=== PATIENT | male | born 1950 | race Two or more races ===

== ENCOUNTER 2016-10-15 13:24 | Inpatient (IN) | payer MEDICARE ==
[~2016-10-15] VITALS: Ht 188 cm; Wt 130.1 kg
[~2016-10-15 13:24] MED LIST changes: -ELIQ5TAB PO; -GLUC500T PO; -LISI10TA4 PO; -LOPR1TAB6 PO
[2016-10-15] MEDS ORDERED: ASPIRIN 81 MG CHEW TABLET PO ONE (14:00)
[2016-10-15 14:04] LABS: BASO % 0.7 % (0.0-1.0); EOS # 0.2 K/mm3 (0.0-0.50); EOS % 2.6 % (0.0-3.0); LARGE UNSTAINED CELL # 0.1 K/mm3 (0.0-0.4); LARGE UNSTAINED CELL % 1.1 % (0.0-4.0); LYMPH # 1.4 K/mm3 (1.5-4.5); LYMPH % 19.7 % (24.0-44.0); MEAN CORPUSCULAR HEMOGLOBIN 28.8 pg (27.0-33.0); MEAN CORPUSCULAR HGB CONC 33.5 g/dl (32.0-36.5); MEAN CORPUSCULAR VOLUME 86.1 fl (80.0-96.0); MONO # 0.4 K/mm3 (0.0-0.8); MONO % 5.4 % (0.0-5.0); NEUTROPHILS # 4.8 K/mm3 (1.8-7.7); NEUTROPHILS % 70.6 % (36.0-66.0); PLATELET COUNT, AUTOMATED 175 k/mm3 (150-450); RED CELL DISTRIBUTION WIDTH 13.6 % (11.5-14.5); WHITE BLOOD COUNT 6.7 K/mm3 (4.0-10.0)
[2016-10-15 14:10] LABS: INR 1.1
[2016-10-15] MEDS: METOPROLOL 5 MG/5 ML VIAL IV SCH ×3 (14:34→14:48)
[2016-10-15 14:37] LABS: ALBUMIN 4.1 GM/DL (3.2-5.2); ALBUMIN/GLOBULIN RATIO 0.91 (1.00-1.93); ALKALINE PHOSPHATASE 82 U/L (45-117); ALT/SGPT 35 U/L (12-78); ANION GAP 10 MEQ/L (8-16); AST/SGOT 21 U/L (15-37); BILIRUBIN,DIRECT 0.3 MG/DL (0.0-0.2); BILIRUBIN,TOTAL 1.2 MG/DL (0.2-1.0); BLOOD UREA NITROGEN 17 MG/DL (7-18); CALCIUM LEVEL 8.9 MG/DL (8.8-10.2); CARBON DIOXIDE LEVEL 27 MEQ/L (21-32); CHLORIDE LEVEL 100 MEQ/L (98-107); CREATININE FOR GFR 1.26 MG/DL (0.70-1.30); FREE T4 1.21 NG/DL (0.76-1.46); GLOMERULAR FILTRATION RATE > 60.0 (>49); GLUCOSE, FASTING 245 MG/DL (80-110); POTASSIUM SERUM 3.8 MEQ/L (3.5-5.1); SODIUM LEVEL 137 MEQ/L (136-145); TOTAL PROTEIN 8.6 GM/DL (6.4-8.2)
[2016-10-15] MEDS ORDERED: METOPROLOL TART 25 MG TABLET PO ONE (15:00)
[2016-10-15] MEDS ORDERED: ISOVUE-370 76% 100ML VIAL (Q9967) As Ordered ONE (15:05)
--- NOTE | 2016-10-15 15:06 | REP ---
PORTABLE CHEST: AP portable view of the chest is performed and compared to prior study of 12/06/2009. The heart is upper limits of normal in size. There is no acute infiltrate with subtly prominent interstitial markings noted. The mediastinal silhouette is unchanged. IMPRESSION: No evidence of acute pulmonary disease. Signed by Keaton Patricio MD 10/15/2016 05:06 P
--- NOTE | 2016-10-15 15:19 | REP ---
BILATERAL LOWER EXTREMITY DOPPLER VENOUS ULTRASOUND: 10/15/2016. Clinical history: Bilateral lower extremity swelling, right greater than left. Findings: No prior study. Standard duplex techniques utilized from the groin to the popliteal fossa with color flow, duplex Doppler interrogation, romero scale imaging and compression ultrasound techniques. The left lower extremity shows full compressibility throughout its course with respiratory variation and augmented flow and patency of the color throughout. There is a duplication of the distal SFV which is a normal finding. The right lower extremity shows occlusive thrombus from the distal SFV through the popliteal vein into the tibial peroneal trunk. There is also a duplicated SFV distally on the right above this. There is normal flow and compressibility of the mid SFV and proximal SFV. The common femoral vein was also intact. Impression: 1. Occlusive DVT in the right lower extremity from the distal SFV in the thigh through the popliteal vein. The veins proximal to this in the thigh and groin were without thrombus. 2. No evidence of DVT in the left lower extremity. Signed by Raul Samuel MD 10/15/2016 03:57 P
--- NOTE | 2016-10-15 15:49 | HPEPDOC ---
Medical History and Physical Date of Admission 10/16/16 History and Physical ATTENDING: Dr. Gibbs PCP: None CC: RLE edema HPI: 66yoM with a past medical history significant for Afib, CHF who states he has not seen PCP or cardiology since 2010 when he stopped his meds. He states he felt fine in the meantime until a few days ago when he began to noitice RLE edema. States he took some outdated lasix to help. Pt [facility] and is found with Afib RVR and RLE DVT. Denies any fevers, chills, weakness, fatigue, KEITH, CP, SOB, cough, palpitations, abdominal pain, N/V/D or changes in bowel or bladder habits. Upon presentation to the hospital the patient was found to have Afib with RVR and DVT, thus the hospitalist team was consulted. PMHx: Afib on Coumadin in past. Pt stopped approximately 2010 (Pt states side effects with Coumadin) HTN CHF TTE 12/05 LA 5.0cm, DD, EF 50%. obesity BMI 37,7 PSHX: denies SOCHX: Resides in: [place] Marital Status: Kids: 3 Employment: [employer] Tobacco use: denies ETOH: 1-2 per week Illicit Drugs: Denies Recent travel:denies Advanced directives: none FAMHX: Mother: Cancer Father: CVA Siblings:1 sister Cancer, cirrhosis Children: Alive, well Unexpected deaths due to medical reasons: None. ROS: As noted in HPI, otherwise 11pt ROS of systems reviewed and unremarkable. PE: GEN: 66yoM, appears stated age. Well-nourished, well developed. No acute distress. Alert and oriented x 3. Pleasant, interactive. HEENT: Normocephalic, atraumatic. Pupils are equal, round, and reactive to light. Extraocular movements are intact. No nystagmus appreciated. Sclera are nonicteric. Conjunctiva without injection. Nose midline. Nasal turbinates without bogginess. EACs both patent BL. TMs both visualized and romero with good cone of light, no bulging or erythema. No facial asymmetry. Moist mucous membranes. Dentition fair. Pharynx pink and moist, no cobblestoning. Neck supple , trachea midline. No lymphadenopathy or thyromegaly appreciated. CHEST: irreg irreg rate and rhythm, +S1, +S2. tachy. JVD does not appear elevated. LUNGS: Clear to auscultation bilaterally. No wheezes, rales, or rhonchi. Breathing appears symmetric and easy. Patient is speaking in full sentences. No accessory muscle use. ABD: Round, soft, non-tender, non-distended. +Bowel sounds throughout. No rebound or guarding. No costovertebral angle tenderness. EXT: Pulses 2+ bilaterally dorsalis pedis and radial. RLE with edema and warmth. No TTP. SKIN: [place], dry, warm. Capillary refill <2sec. No rashes. NEURO: Alert and oriented x 3. Cranial nerves III-XII are intact. No focal deficits appreciated. CXR: No evidence of acute pulmonary disease. CTA Chest: pending RLE U/S 1. Occlusive DVT in the right lower extremity from the distal SFV in the thigh through the popliteal vein. The veins proximal to this in the thigh and groin were without thrombus. 2. No evidence of DVT in the left lower extremity. EKG: Afib RVR, IVCD 112 bpm. BC x 2 pending. UA pending A&P: 66yoM with a past medical history significant for Afib, CHF who states he has not seen PCP or cardiology since 2010 when he stopped his meds. He states he felt fine in the meantime until a few days ago when he began to noitice RLE edema. Pt reported to ED at [facility] and is found with Afib RVR and RLE DVT. 1. The patient will be admitted to PCU for at least [address] Gibbs's service. Pt is discussed with Dr Jordan. 2. Afib with RVR. Pt does not wish to be placed on Coumadin as he states he has had side effects in the past. PCU/TM. CIP/Trop x 3. TFTs. Lopressor po Q6 with hold parameters. Eliquis added as below. Echo pending. Dr Tavarez consulted. 3. RLE DVT. Initiate Eliquis 10 mg BID. CTA chest pending. 4. H/O HTN/CHF. Lopressor Q6 with hold parameters. Echo pending. Appears compensated. BNP 70. 5. Obesity. BMI 37.7 Complicates care. Add A1c and Lipids to labs. 6. Abnormal TSH. Thyroid profile requested. DVT prophylaxis. Eliquis as above. The patient is a Full code. Attending Note: I have independently examined this patient and all aspects of the exam and treatment decisions have been discussed. A member of the hospitalist staff will continue to follow this patient through discharge. Vital Signs Vital Signs Date Time Temp Pulse Resp B/P (MAP) Pulse Ox O2 Delivery O2 Flow Rate FiO2 10/15/16 14:48 101 148/97 10/15/16 13:24 96.8 16 97 Room Air Laboratory Data Labs 24H Laboratory Tests 2 10/15/16 13:49: White Blood Count 6.7, Red Blood Count 5.35, Hemoglobin 15.4, Hematocrit 46.0, Mean Corpuscular Volume 86.1, Mean Corpuscular Hemoglobin 28.8, Mean Corpuscular Hemoglobin Concent 33.5, Red Cell Distribution Width 13.6, Platelet Count 175, Neutrophils (%) (Auto) 70.6H, Lymphocytes (%) (Auto) 19.7L, Monocytes (%) (Auto) 5.4H, Eosinophils (%) (Auto) 2.6, Basophils (%) (Auto) 0.7 , Neutrophils # (Auto) 4.8, Lymphocytes # (Auto) 1.4L, Monocytes # (Auto) 0.4, Eosinophils # (Auto) 0.2, Basophils # (Auto) 0.0, Large Unclassified Cells % 1.1 , Large Unclassified Cells # 0.1, Prothrombin Time 14.3, Prothromb Time International Ratio 1.10, Activated Partial Thromboplast Time 31.5, Anion Gap 10 , Glomerular Filtration Rate > 60.0, Calcium Level 8.9, Aspartate Amino Transf ( AST/SGOT) 21, Alanine Aminotransferase (ALT/SGPT) 35, Alkaline Phosphatase 82, Total Bilirubin 1.2H, Direct Bilirubin 0.3H, Total Creatine Kinase 122, Creatine Kinase MB 2.4, Creatine Kinase MB Relative Index 1.96, Troponin I 0.04 , B-Type Natriuretic Peptide 70.5, Total Protein 8.6H, Albumin 4.1, Albumin/ Globulin Ratio 0.91L, Lipase 192, Thyroid Stimulating Hormone (TSH) 7.430H, Free Thyroxine 1.21 CBC/BMP Laboratory Tests 10/15/16 13:49 Red Blood Count 5.35, Mean Corpuscular Volume 86.1, Mean Corpuscular Hemoglobin 28.8, Mean Corpuscular Hemoglobin Concent 33.5, Red Cell Distribution Width 13.6 , Neutrophils (%) (Auto) 70.6 H, Lymphocytes (%) (Auto) 19.7 L, Monocytes (%) ( Auto) 5.4 H, Eosinophils (%) (Auto) 2.6, Basophils (%) (Auto) 0.7, Neutrophils # (Auto) 4.8, Lymphocytes # (Auto) 1.4 L, Monocytes # (Auto) 0.4, Eosinophils # (Auto) 0.2, Basophils # (Auto) 0.0 Microbiology Microbiology 10/15/16 Blood Culture, Received Pending 10/15/16 Blood Culture, Received Pending Home Medications No Active Prescriptions or Reported Meds Allergies Coded Allergies: No Known Allergies (Verified , 11/30/09) Paulina Pitt Oct 15, 2016 15:49 ZANDRA JORDAN DO Oct 15, 2016 18:54
--- NOTE | 2016-10-15 16:01 | REP ---
CT ANGIOGRAM OF THE CHEST: TECHNIQUE: Axial contrast enhanced images from the thoracic inlet to the upper abdomen using 100 mL Isovue 370 intravenous contrast material with multiplanar reformations. Thrombus is seen in second order branches of the right lower lobe. No other pulmonary embolism is seen bilaterally. There is no thoracic aortic aneurysm or dissection. Mildly prominent subcarinal lymph node measures 1.3 cm in short axis dimension. There are mild atherosclerotic calcifications of the thoracic aorta. Heart is mildly enlarged. There is no pleural or pericardial effusion. There are multiple tiny calcified granulomas in both lungs. In the visualized portions of the upper abdomen there are gallstones in the dependent portion of the gallbladder. There are degenerative changes of the spine. IMPRESSION: Pulmonary embolism in second order branches of the right lower lobe. Gallstones in the gallbladder. Signed by Keaton Patricio MD 10/15/2016 05:06 P
[2016-10-15 16:11] LABS: CHOLESTEROL LEVEL 178 MG/DL (<200); T UPTAKE 34 % (33-40); THYROXINE (T4) 10.7 UG/DL (4.5-12.0); TRIGLYCERIDES LEVEL 110 MG/DL (<150)
--- NOTE | 2016-10-15 17:59 | ECGEPIP ---
Stationary ECG Study [facility] - ED Test Date: 2016-10-15 Pat Name: KORY ARANGO Department: Room: [place] [address] Gender: M Membership Secretary: teo : 1950 Requested By: Ana Ledesma Order Number: [id number] Reading MD: Ana Ledesma Measurements Intervals [place] Rate: 112 P: GA: 0 QRS: -66 QRSD: 138 T: 109 QT: 366 QTc: 502 Interpretive Statements ATRIAL FIBRILLATION WITH RAPID VENTRICULAR RESPONSE WITH ABERRANT CONDUCTION OR VENTRICULAR PREMATURE COMPLEXES INTRAVENTRICULAR CONDUCTION DELAY LAD NO OLD ECG FOR COMPARISON Electronically Signed On 10-15-2016 17:59:18 EDT by Ana Ledesma
[2016-10-15] MEDS ORDERED: METOPROLOL TART 25 MG TABLET PO SCH (18:00)
[2016-10-15 20:30] VITALS: BP 160/93
[2016-10-15] MEDS ORDERED: SLF 3 ML SYR IV PRN (21:00)
[2016-10-15] MEDS: APIXABAN 5 MG TAB (ELIQUIS) PO SCH (21:57)
[2016-10-15] MEDS: SLF 3 ML SYR IV SCH (21:58)
[2016-10-16] VITALS (7 sets, daily range): BP systolic 142–164; BP diastolic 77–100
[2016-10-16] MEDS: METOPROLOL TART 25 MG TABLET PO SCH ×5 (00:13→17:50)
[2016-10-16 04:54] LABS: MEAN CORPUSCULAR HEMOGLOBIN 28.9 pg (27.0-33.0); MEAN CORPUSCULAR HGB CONC 32.8 g/dl (32.0-36.5); MEAN CORPUSCULAR VOLUME 88.2 fl (80.0-96.0); RED CELL DISTRIBUTION WIDTH 13.4 % (11.5-14.5); WHITE BLOOD COUNT 7.1 K/mm3 (4.0-10.0)
[2016-10-16 05:13] LABS: ALBUMIN 3.3 GM/DL (3.2-5.2); ALBUMIN/GLOBULIN RATIO 0.79 (1.00-1.93); ALKALINE PHOSPHATASE 71 U/L (45-117); ALT/SGPT 25 U/L (12-78); ANION GAP 7 MEQ/L (8-16); AST/SGOT 18 U/L (15-37); BILIRUBIN,TOTAL 1.3 MG/DL (0.2-1.0); BLOOD UREA NITROGEN 20 MG/DL (7-18); CALCIUM LEVEL 8.6 MG/DL (8.8-10.2); CARBON DIOXIDE LEVEL 30 MEQ/L (21-32); CHLORIDE LEVEL 103 MEQ/L (98-107); CREATININE FOR GFR 1.23 MG/DL (0.70-1.30); GLOMERULAR FILTRATION RATE > 60.0 (>49); GLUCOSE, FASTING 178 MG/DL (80-110); POTASSIUM SERUM 3.6 MEQ/L (3.5-5.1); SODIUM LEVEL 140 MEQ/L (136-145); TOTAL PROTEIN 7.5 GM/DL (6.4-8.2)
[2016-10-16] MEDS: SLF 3 ML SYR IV SCH ×3 (06:03→20:36)
[2016-10-16] MEDS: APIXABAN 5 MG TAB (ELIQUIS) PO SCH ×2 (08:12→20:36)
[2016-10-16 11:38] LABS: POTASSIUM SERUM 3.9 MEQ/L (3.5-5.1)
[2016-10-16 11:43] LABS: CREATININE FOR GFR 1.29 MG/DL (0.70-1.30); GLOMERULAR FILTRATION RATE 59.1 (>49); MAGNESIUM LEVEL 2.4 MG/DL (1.8-2.4)
[2016-10-16 11:57] LABS: CALCIUM LEVEL 8.8 MG/DL (8.8-10.2)
[2016-10-16] MEDS ORDERED: GLUCOSE 4 GM CHEW TABLET PO PRN (17:45)
[2016-10-16] MEDS ORDERED: GLUCAGON FOR INJ 1 MG VIAL (J1610) SC PRN (17:45)
[2016-10-16] MEDS ORDERED: DEXTROSE 50% 50 ML SYRINGE IV PRN (17:45)
--- NOTE | 2016-10-16 17:57 | IPNPDOC ---
Subjective Date Seen The patient was seen on 10/16/16. Subjective Chief Complaint/HPI The patient is a 66-year-old male admitted with a reason for visit of Atrial Fibrillation With Rvr, Right Leg Dvt. Constitutional: Denies: Chills, Fever, Night Sweats Pulmonary: Denies: Dyspnea, Cough Musculoskeletal: Reports: Leg Pain Objective Physical Examination General Exam: Positive: No Acute Distress Eye Exam: Positive: PERRLA Chest Exam: Positive: Clear to auscultation, Normal air movement Heart Exam: Positive: Tachycardic, Irregular Rhythm, Normal S1, Normal S2, Negative: Murmurs, Rubs Extremity Exam: Positive: Tenderness, Swelling Assessment /Plan Problems (1) Hyperglycemia Status: Acute Problem Text: * will check hgA1c * insulin sliding scale with accu checks (2) Right leg DVT Status: Acute Problem Text: started on eliquis (3) Atrial fibrillation with rapid ventricular response Status: Chronic Response to Treatment: Stable Plan/VTE VTE Prophylaxis Ordered?: Yes VS, I&O, 24H, [facility] Vital Signs/I&O Vital Signs Date Time Temp Pulse Resp B/P (MAP) Pulse Ox O2 Delivery O2 Flow Rate FiO2 10/16/16 16:00 98.1 86 20 142/89 (106) 95 Room Air I&O- Last 24 Hours up to 6 AM 10/16/16 06:00 Output Total 900 ml Balance -900 ml Laboratory Data 24H LABS Laboratory Tests 2 10/15/16 17:48: Total Creatine Kinase 101, Creatine Kinase MB 1.8, Creatine Kinase MB Relative Index 1.78, Troponin I 0.05# 10/15/16 20:59: Urine Appearance CLEAR, Urine Color YELLOW, Urine pH 5.0, Urine Specific [place] 1.032, Urine Protein NEGATIVE, Urine Glucose (UA) 3+H, Urine Ketones NEGATIVE, Urine Urobilinogen 2.0H, Urine Bilirubin NEGATIVE, Urine Leukocyte Esterase NEGATIVE, Urine Blood NEGATIVE, Urine Nitrite NEGATIVE, Urine WBC (Auto ) 0, Urine RBC (Auto) 0, Urine Hyaline Casts (Auto) 0, Urine Bacteria (Auto) NEGATIVE, Urine Squamous Epithelial Cells 0, Urine Sperm (Auto) 10/16/16 04:19: Total Creatine Kinase 78, Creatine Kinase MB 1.0, Creatine Kinase MB Relative Index 1.28, Troponin I 0.05, Anion Gap 7L, Glomerular Filtration Rate > 60.0, Blood Urea Nitrogen 20H, Creatinine 1.23, Sodium Level 140, Potassium Level 3.6 , Chloride Level 103, Carbon Dioxide Level 30, Calcium Level 8.6L, Aspartate Amino Transf (AST/SGOT) 18, Alanine Aminotransferase (ALT/SGPT) 25, Alkaline Phosphatase 71, Total Bilirubin 1.3H, Total Protein 7.5, Albumin 3.3, Albumin/ Globulin Ratio 0.79L 10/16/16 10:05: Total Creatine Kinase 76, Creatine Kinase MB 1.0, Creatine Kinase MB Relative Index 1.31, Troponin I 0.04, Anion Gap 8, Glomerular Filtration Rate 59.1, Calcium Level 8.8, Magnesium Level 2.4 CBC/BMP Laboratory Tests 10/16/16 04:19 Red Blood Count 4.98, Mean Corpuscular Volume 88.2, Mean Corpuscular Hemoglobin 28.9, Mean Corpuscular Hemoglobin Concent 32.8, Red Cell Distribution Width 13.4 , Calcium Level 8.6 L, Aspartate Amino Transf (AST/SGOT) 18, Alanine Aminotransferase (ALT/SGPT) 25, Total Creatine Kinase 78, Alkaline Phosphatase 71, Total Bilirubin 1.3 H, Total Protein 7.5, Albumin 3.3 10/16/16 10:05 Calcium Level 8.8, Total Creatine Kinase 76 Microbiology Microbiology 10/15/16 Blood Culture - Preliminary, Resulted No growth after 24 hours . All specim... 10/15/16 Blood Culture - Preliminary, Resulted No growth after 24 hours . All specim... DIOGO DEJESUS DO Oct 16, 2016 17:57
[2016-10-16] MEDS: HumaLOG INSULIN (NovoLOG) PER UNIT SC SCH ×2 (18:01→20:32)
[2016-10-17] MEDS: METOPROLOL TART 25 MG TABLET PO SCH ×2 (00:11→05:58)
[2016-10-17 04:00] VITALS: BP 140/90
[2016-10-17 05:10] LABS: MEAN CORPUSCULAR HGB CONC 33.2 g/dl (32.0-36.5); MEAN CORPUSCULAR VOLUME 87.2 fl (80.0-96.0); RED CELL DISTRIBUTION WIDTH 13.6 % (11.5-14.5); WHITE BLOOD COUNT 6.4 K/mm3 (4.0-10.0)
[2016-10-17 05:30] LABS: ALBUMIN 3.2 GM/DL (3.2-5.2); ALBUMIN/GLOBULIN RATIO 0.76 (1.00-1.93); ALKALINE PHOSPHATASE 62 U/L (45-117); ALT/SGPT 24 U/L (12-78); ANION GAP 5 MEQ/L (8-16); AST/SGOT 18 U/L (15-37); BILIRUBIN,TOTAL 1.2 MG/DL (0.2-1.0); BLOOD UREA NITROGEN 22 MG/DL (7-18); CALCIUM LEVEL 8.6 MG/DL (8.8-10.2); CARBON DIOXIDE LEVEL 31 MEQ/L (21-32); CHLORIDE LEVEL 104 MEQ/L (98-107); CHOLESTEROL LEVEL 158 MG/DL (<200); CREATININE FOR GFR 1.22 MG/DL (0.70-1.30); GLOMERULAR FILTRATION RATE > 60.0 (>49); GLUCOSE, FASTING 164 MG/DL (80-110); POTASSIUM SERUM 3.8 MEQ/L (3.5-5.1); SODIUM LEVEL 140 MEQ/L (136-145); TOTAL PROTEIN 7.4 GM/DL (6.4-8.2); TRIGLYCERIDES LEVEL 86 MG/DL (<150)
[2016-10-17] MEDS: SLF 3 ML SYR IV SCH ×3 (05:59→20:27)
[2016-10-17 08:00] VITALS: BP 163/93
--- NOTE | 2016-10-17 08:50 | CR ---
DATE OF CONSULTATION: 10/17/2016 Referring physician was Paulina Pitt PA-C. INDICATION: Atrial fibrillation with rapid ventricular response. HISTORY OF PRESENT ILLNESS: Mr. Baxter is a 66-year-old man who has not had any consistent medical care since 2009. He presented to [facility] with right lower extremity swelling and mild discomfort and shortness of breath. The onset of symptoms was only a few days prior to the presentation. He was found to have deep venous thrombosis (DVT) in right lower extremity and there was evidence for right lower lobe pulmonary embolism on CT angiography of the chest. Simultaneously, he was in atrial fibrillation with rapid ventricular response that was fairly rapidly under control with administration of initially IV and then oral metoprolol. I was asked to see the patient mostly to establish a relationship so he can be followed on outpatient basis. Patient apparently was diagnosed with atrial fibrillation in 2009 or 2010. He was briefly followed by Dr. Hong and started on several medications. Apparently, there was some kind of conflict and he stopped seeing all medical providers. In spite of that he was doing well, was able to ambulate and to work without major difficulty. He denies any shortness of breath prior to onset of current illness. There was no history of dizziness, near/syncope and no chest pain. PAST MEDICAL HISTORY: 1. Chronic atrial fibrillation dating back to 2009 or 2010. 2. Hypertension. 3. Remote history of congestive heart failure. An echocardiogram 2009 revealed grossly preserved left ventricular systolic function with ejection fraction (EF) around 50%. 4. Obesity. SURGICAL HISTORY: Is negative. SOCIAL HISTORY: Patient is . He is a father of three children. 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 No smoking and he has rare beer once a twice a week. FAMILY HISTORY: His father of stroke, mother of cancer and one of the siblings of liver cirrhosis. OUTPATIENT MEDICATIONS: None. ALLERGIES: None. REVIEW OF SYSTEMS: He denies any recent fever, chills, nausea, vomiting, diarrhea. No chest pain or palpitations. Shortness of breath and leg swelling and pain as per HPI. No abdominal pain. PHYSICAL EXAMINATION: Mr. Baxter is a 66-year-old and appears approximately his age. He is alert and oriented and appropriate. Does not appear to be in any distress. Blood pressure this morning was documented 163/93. Heart rate has been well controlled in 60s to 70s, atrial fibrillation. He is afebrile. Saturation 98% on room air. His jugular venous pulse (JVP) is not elevated. Lungs sound clear to auscultation bilaterally with good air movement. Heart exam revealed regular rhythm. No gallop. No rub. I do not appreciate any distinct murmur as well, but the heart sounds are somewhat muffled due to his large body habitus. Abdomen is obese but soft and nontender. Extremities have about 1+ swelling in his right calf, definitely larger volume than left calf, but no pain as such. LABORATORY [facility]: CBC is normal. Basic metabolic panel is normal. Calcium is 8.6. Magnesium is 1.2. His lipid panel reveals total cholesterol 158, HDL 37, LDL 104. Echocardiogram was performed yesterday and is pending. CT of the chest with IV contrast is positive for right lobe embolus. ASSESSMENT AND PLAN: Mr. Baxter is a 66-year-old man who has chronic atrial fibrillation and presented with rapid ventricular rate in the setting of deep venous deep venous thrombosis/pulmonary embolism. As far as the management of pulmonary embolism is concerned, he was started on apixaban and he already feels much better. This will be continued. As far as the atrial fibrillation is concerned, he seems to be now well controlled on 100 mg of metoprolol a day. I changed his dosing to 50 twice a day. I will review his echocardiogram. I do not assume that there will be LV systolic dysfunction as I do not believe that he could have lived with severe LV dysfunction for years without much symptoms. He is hypertensive, but I will not add additional medications. He was without treatment for years and I will prefer to add additional medication on outpatient basis if necessary. From my perspective, he can be discharged home possibly even later today. He did have several brief runs of nonsustained ventricular tachycardia on telemetry, not more than 5 beats at a time, but now with pulmonary embolism being treated I do hope that there will be improvement. SARBJIT
[2016-10-17] MEDS: METOPROLOL TART 50 MG TAB PO SCH ×2 (09:02→20:27)
[2016-10-17] MEDS: APIXABAN 5 MG TAB (ELIQUIS) PO SCH ×2 (09:02→20:27)
[2016-10-17] MEDS: HumaLOG INSULIN (NovoLOG) PER UNIT SC SCH ×4 (09:02→20:28)
[2016-10-17] MEDS: metFORMIN (GLUCOPHAGE) 500 MG TAB PO SCH ×2 (10:49→17:36)
[2016-10-17 12:00] VITALS: BP 140/66
[2016-10-17] MEDS ORDERED: ELIQ5TAB PO (12:48)
--- NOTE | 2016-10-17 14:37 | IPNPDOC ---
Subjective Date Seen The patient was seen on 10/17/16. Subjective Chief Complaint/HPI The patient is a 66-year-old male admitted with a reason for visit of Atrial Fibrillation With Rvr, Right Leg Dvt. Events since last encounter pt seen and examined, doing well, no events overnight on tele Objective Physical Examination General Exam: Positive: No Acute Distress Eye Exam: Positive: PERRLA Chest Exam: Positive: Clear to auscultation, Normal air movement Heart Exam: Positive: Tachycardic, Irregular Rhythm, Normal S1, Normal S2, Negative: Murmurs, Rubs Extremity Exam: Positive: Tenderness, Swelling Assessment /Plan Problems (1) Right leg DVT Status: Acute Problem Text: started on eliquis (2) Atrial fibrillation with rapid ventricular response Status: Chronic Response to Treatment: Stable Problem Text: * metoprolol bid * eliquis daily (3) Hyperglycemia Status: Acute Problem Text: * HgA1C is 8.2 * will start diabetic teaching, consistent carb diet * metformin 500mg Plan/VTE VTE Prophylaxis Ordered?: Yes VS, I&O, 24H, [facility] Vital Signs/I&O Vital Signs Date Time Temp Pulse Resp B/P (MAP) Pulse Ox O2 Delivery O2 Flow Rate FiO2 10/17/16 12:00 97.7 70 20 140/66 (90) 100 Room Air I&O- Last 24 Hours up to 6 AM 10/17/16 06:00 Intake Total 1440 ml Output Total 950 ml Balance 490 ml Laboratory Data 24H LABS Laboratory Tests 2 10/16/16 17:55: Bedside Glucose (Misc Panel) 219H 10/16/16 20:31: Bedside Glucose (Misc Panel) 206H 10/17/16 04:45: Anion Gap 5L, Glomerular Filtration Rate > 60.0, Blood Urea Nitrogen 22H, Creatinine 1.22, Sodium Level 140, Potassium Level 3.8, Chloride Level 104, Carbon Dioxide Level 31, Calcium Level 8.6L, Aspartate Amino Transf (AST/SGOT) 18, Alanine Aminotransferase (ALT/SGPT) 24, Alkaline Phosphatase 62, Total Bilirubin 1.2H, Triglycerides Level 86, LDL Cholesterol 103.8H, Total Protein 7.4, Albumin 3.2, Albumin/Globulin Ratio 0.76L, Total Cholesterol 158, Non-HDL Cholesterol (LDL + VLDL) 121, Total HDL Cholesterol 37L, Cholesterol/HDL Ratio 4.270 10/17/16 11:05: Bedside Glucose (Misc Panel) 197H CBC/BMP Laboratory Tests 10/17/16 04:45 Red Blood Count 4.91, Mean Corpuscular Volume 87.2, Mean Corpuscular Hemoglobin 29.0, Mean Corpuscular Hemoglobin Concent 33.2, Red Cell Distribution Width 13.6 , Calcium Level 8.6 L, Aspartate Amino Transf (AST/SGOT) 18, Alanine Aminotransferase (ALT/SGPT) 24, Alkaline Phosphatase 62, Total Bilirubin 1.2 H, Triglycerides Level 86, LDL Cholesterol 103.8 H, Total Protein 7.4, Albumin 3.2 Microbiology Microbiology 10/15/16 Blood Culture - Preliminary, Resulted No Growth after 48 hours. All Specime... 10/15/16 Blood Culture - Preliminary, Resulted No Growth after 48 hours. All Specime... 10/17/16 Stool Occult Blood (SULY) - Final, Complete DIOGO DEJESUS DO Oct 17, 2016 14:37
[2016-10-17 15:30] VITALS: BP 126/52
[2016-10-17 19:49] VITALS: BP 152/86
--- NOTE | 2016-10-17 20:22 | ECHO ---
DATE OF PROCEDURE: 10/16/2016 REFERRING PHYSICIAN: Trini Gibbs MD, Paulina Pitt NP INDICATION: Congestive heart failure, atrial fibrillation, pulmonary embolism. HEIGHT: 188 cm WEIGHT: 133 kg DIMENSIONS: IVS: 1.5 LV: 5.0 LVPW: 1.5 LA: 4.4 Aorta: 3.1 FINDINGS: The study is of fair technical quality. The left ventricle is of normal size. There is a global hypokinesis. I estimate overall ejection fraction (EF) around 45%. Moderate left ventricular hypertrophy is noted. Right ventricle appears at least mildly dilated. Both atria are severely enlarged. Aortic valve is sclerotic, but is has three cusps and dual mobility. Mitral valve appears normal. Tricuspid valve appears normal. Pulmonic valve also appears normal. No pericardial effusion is noted. Inferior vena cava is dilated and has limited collapse with respiration indicative of high central venous pressure. Aortic root appears normal. Aortic arch and abdominal aorta were not well seen. Doppler interrogation reveals no aortic stenosis or insufficiency. There is mild mitral insufficiency and mild tricuspid insufficiency. Calculated pulmonary artery pressure is at least in mid 50s or higher corresponding to moderately severe pulmonary hypertension. Pulmonic valve is functionally competent. CONCLUSIONS: 1. Study is of limited technical quality. 2. Normal left ventricle (LV) size with moderate left ventricular hypertrophy (LVH) and approximately moderate LV systolic dysfunction that is global in nature. 3. Dilated right ventricle. 4. Severe biatrial enlargement. 5. No hemodynamically significant valvular disease. 6. Elevated central venous pressure and at least moderately severe pulmonary hypertension. COMMENT: Subacute bacterial endocarditis (SBE) prophylaxis is not recommended.
[2016-10-17 23:59] VITALS: BP 156/93
[2016-10-18 04:00] VITALS: BP 180/99
[2016-10-18 04:55] LABS: MEAN CORPUSCULAR HEMOGLOBIN 28.6 pg (27.0-33.0); MEAN CORPUSCULAR HGB CONC 33.2 g/dl (32.0-36.5); MEAN CORPUSCULAR VOLUME 86.1 fl (80.0-96.0); RED CELL DISTRIBUTION WIDTH 13.5 % (11.5-14.5); WHITE BLOOD COUNT 6.2 K/mm3 (4.0-10.0)
[2016-10-18 05:11] LABS: ALBUMIN 3.3 GM/DL (3.2-5.2); ALKALINE PHOSPHATASE 63 U/L (45-117); ALT/SGPT 23 U/L (12-78); ANION GAP 6 MEQ/L (8-16); AST/SGOT 17 U/L (15-37); BILIRUBIN,TOTAL 1.1 MG/DL (0.2-1.0); BLOOD UREA NITROGEN 22 MG/DL (7-18); CALCIUM LEVEL 8.9 MG/DL (8.8-10.2); CARBON DIOXIDE LEVEL 29 MEQ/L (21-32); CHLORIDE LEVEL 104 MEQ/L (98-107); CREATININE FOR GFR 1.23 MG/DL (0.70-1.30); GLOMERULAR FILTRATION RATE > 60.0 (>49); GLUCOSE, FASTING 128 MG/DL (80-110); POTASSIUM SERUM 4.2 MEQ/L (3.5-5.1); SODIUM LEVEL 139 MEQ/L (136-145); TOTAL PROTEIN 7.4 GM/DL (6.4-8.2)
[2016-10-18] MEDS: SLF 3 ML SYR IV SCH (05:46)
[2016-10-18 07:25] VITALS: BP 140/80
[2016-10-18] MEDS: HumaLOG INSULIN (NovoLOG) PER UNIT SC SCH (07:48)
[2016-10-18] MEDS: metFORMIN (GLUCOPHAGE) 500 MG TAB PO SCH (07:49)
[2016-10-18 08:45] VITALS: BP 148/80
[2016-10-18] MEDS: APIXABAN 5 MG TAB (ELIQUIS) PO SCH (08:45)
[2016-10-18] MEDS: METOPROLOL TART 50 MG TAB PO SCH (08:45)
[2016-10-18] MEDS ORDERED: ELIQ5TAB PO (09:03)
[2016-10-18] MEDS ORDERED: GLUC500T PO (09:03)
[2016-10-18] MEDS ORDERED: LISI10TA4 PO (09:03)
[2016-10-18] MEDS ORDERED: LOPR1TAB6 PO (09:03)
[2016-10-18 10:09] LABS: MAGNESIUM LEVEL 2.3 MG/DL (1.8-2.4)
--- NOTE | 2016-10-18 17:57 | DSES ---
DATE OF ADMISSION: 10/15/2016 DATE OF DISCHARGE: 10/18/2016 REASON FOR ADMISSION: Right lower extremity edema. FINAL DIAGNOSES 1. Right lower extremity deep venous thrombosis (DVT). 2. Pulmonary emboli. 3. Atrial fibrillation with rapid ventricular response (RVR). 4. New diagnosis of diabetes. 5. Hypertension. PRIMARY CARE PROVIDER: None. HISTORY OF PRESENT ILLNESS: The patient is a 66-year-old male with past medical history of atrial fibrillation but he did not followup with any providers. He presented to the emergency room complaining of lower extremity edema and pain. He stated it started a few days ago. He did take some outdated Lasix hoping it would help but it did not. He finally presented to the emergency room. He was found to have right lower extremity DVT, pulmonary embolism (PE) and atrial fibrillation with rapid ventricular response. The patient was admitted under hospitalist service and cardiology was consulted. HOSPITAL COURSE: The patient was started on Eliquis 10 mg by mouth twice a day for seven days. Dr. Tavarez was consulted and he agreed to see the patient in consultation. He started the patient on metoprolol twice a day which controlled his heart rate. Hemoglobin A1c was ordered. It was found to be 8.2. The patient was given diabetic teaching and started on metformin 500 mg by mouth twice a day. The patient's blood pressure continued to be elevated. He was then started on lisinopril 10 mg by mouth daily. Once the patient's medications were sent to the pharmacy and his lab values were stable and he has undergone the teaching, he was discharged home. The patient does not have insurance at this time, so he is instructed to go Dr. Tavarez's office for samples for Eliquis in the meantime until he gets insurance. Diet diabetic. Activities as tolerated. Discharge medications include: - Eliquis 5 mg by mouth twice a day; the patient is first instructed to complete three more days of 10 mg by mouth twice a day, then he can start a dose of 5 mg by mouth twice a day - metoprolol 50 mg by mouth twice a day - metformin 500 mg by mouth twice a day - lisinopril 10 mg by mouth daily The patient was given a primary care provider. He is to followup with Dr. Kaur in 1-2 weeks. DISCHARGE CONDITION: Stable.
--- NOTE | 2016-10-18 19:16 | IPN ---
DATE: 10/18/2016 Mr. Baxter is feeling better, and he would like to go home. He had no specific complaints. No dyspnea. No palpitations. No chest discomfort. Vital signs: Blood pressure 140/80, heart rate is from 60s to 90s. He is afebrile. Saturation 94% on room air. Fluid balance yesterday approximately equal. Weight is 130 kg. He is alert, oriented, and appropriate. His jugular venous pulse (JVP) does not appear elevated. Lungs are clear to auscultation with good air movement. Heart exam reveals irregular rhythm. I do not appreciate any gallop. Abdomen is obese but soft. There is no peripheral edema. His right lower extremity edema is basically gone. Neurologically he is intact. LABORATORY: He has normal CBC and normal basic metabolic panel. He had echocardiogram that revealed mild to moderate left ventricular (LV) systolic dysfunction with left ventricular hypertrophy and no significant valvular disease. There was elevated central venous pressure (CVP) and at least moderate pulmonary hypertension. The echocardiogram was performed 2 days ago. ASSESSMENT AND PLAN: Mr. Baxter is a 66-year-old man who has chronic atrial fibrillation and likely hypertensive heart disease. He presented with deep vein thrombosis (DVT) and pulmonary embolism. At this point I believe he can be discharged home. He will complete 10 mg of apixaban twice a day to be followed by 5 mg twice a day. I will continue metoprolol, as it appears that his atrial fibrillation is well controlled. Even though the combination of angiotensin-converting enzyme (TROY) inhibitor and beta-ethan is generally not recommended for treatment of blood pressure, I would add an TROY inhibitor due to left ventricular dysfunction and diabetes. I intend to see the patient in followup in approximately 2 weeks.
== END 2016-10-18 11:36 | disposition home health service (06) | DRG 299 ==
LOC: M ED 15:13 → M ED INP 15:35 → M PCU 20:23
PROVIDERS: ADMIT Hospitalist; ATTEND Internal Medicine
DX: I82.411 Acute embolism and thrombosis of right femoral vein (principal); I26.99 Other pulmonary embolism without acute cor pulmonale; I48.91 Unspecified atrial fibrillation; I11.0 Hypertensive heart disease with heart failure; Z79.899 Other long term (current) drug therapy; I50.9 Heart failure, unspecified; E66.9 Obesity, unspecified; Z68.37 Body mass index [BMI] 37.0-37.9, adult; I82.431 Acute embolism and thrombosis of right popliteal vein; R73.9 Hyperglycemia, unspecified

== ENCOUNTER → 2016-10-15 | Outpatient (CLI) | payer MEDICARE ==
[~2016-10-15] MED LIST: /WARF5TA OR; CARV12.5 OR; CARV25TA OR; DIGO0.257 OR; ELIQ5TAB PO; GLUC500T PO; LASI80TA OR; LISI10TA4 PO; LISI20TA5 OR; LOPR1TAB6 PO; PRAV20TA2 OR; SPIR25TA2 OR
== END ==
LOC: M LRY 12:50
PROVIDERS: ATTEND Nurse Practitioner Family
DX: I50.9 Heart failure, unspecified (principal); Z53.8 Procedure and treatment not carried out for other reasons

== ENCOUNTER → 2017-01-09 | Outpatient (REF) | payer MEDICARE, MEDICAID ==
[~2017-01-09] MED LIST changes: +ELIQ5TAB PO; +GLUC500T PO; +LISI10TA4 PO; +LOPR1TAB6 PO
[2017-01-09 12:03] LABS: ANION GAP 6 MEQ/L (8-16); BLOOD UREA NITROGEN 25 MG/DL (7-18); CALCIUM LEVEL 9.4 MG/DL (8.8-10.2); CARBON DIOXIDE LEVEL 30 MEQ/L (21-32); CHLORIDE LEVEL 106 MEQ/L (98-107); CREATININE FOR GFR 1.15 MG/DL (0.70-1.30); GLOMERULAR FILTRATION RATE > 60.0 (>49); GLUCOSE, FASTING 160 MG/DL (80-110); POTASSIUM SERUM 4.5 MEQ/L (3.5-5.1); SODIUM LEVEL 142 MEQ/L (136-145)
== END ==
LOC: M SFHCCLAY 08:21
PROVIDERS: ATTEND Family Medicine
DX: I10 Essential (primary) hypertension (principal)

== ENCOUNTER → 2017-03-18 | Outpatient (REF) | payer MEDICARE, MEDICAID ==
[2017-03-19 12:46] LABS: CALCIUM LEVEL 9.5 MG/DL (8.8-10.2); CREATININE FOR GFR 1.6 MG/DL (0.70-1.30)
== END ==
LOC: M SFHCCLAY 16:13
PROVIDERS: ATTEND Family Medicine
DX: I48.2 Chronic atrial fibrillation (principal); I10 Essential (primary) hypertension; Z23 Encounter for immunization; Z79.899 Other long term (current) drug therapy
CPT/HCPCS: 80048; 83036; 90662; G0008; G0463

== ENCOUNTER → 2017-04-11 | Outpatient (REF) | payer MEDICARE, MEDICAID ==
[2017-04-11 11:59] LABS: CALCIUM LEVEL 8.7 MG/DL (8.8-10.2); CREATININE FOR GFR 1.27 MG/DL (0.70-1.30); POTASSIUM SERUM 4.2 MEQ/L (3.5-5.1)
== END ==
LOC: M SFHCCLAY 08:02
PROVIDERS: ATTEND Family Medicine
DX: I10 Essential (primary) hypertension (principal)

== ENCOUNTER → 2017-07-08 | Outpatient (REF) | payer MEDICARE, MEDICAID ==
[2017-07-08 12:27] LABS: ANION GAP 10 MEQ/L (8-16); BLOOD UREA NITROGEN 30 MG/DL (7-18); CALCIUM LEVEL 9.3 MG/DL (8.8-10.2); CARBON DIOXIDE LEVEL 25 MEQ/L (21-32); CHLORIDE LEVEL 104 MEQ/L (98-107); CHOLESTEROL LEVEL 197 MG/DL (<200); CREATININE FOR GFR 1.22 MG/DL (0.70-1.30); GLOMERULAR FILTRATION RATE > 60.0 (>49); GLUCOSE, FASTING 140 MG/DL (70-100); HDL CHOLESTEROL 42 MG/DL (>40); LDL CHOLESTEROL 131.2 MG/DL (<100); NON-HDL-C 155 MG/DL; POTASSIUM SERUM 4.3 MEQ/L (3.5-5.1); SODIUM LEVEL 139 MEQ/L (136-145); TRIGLYCERIDES LEVEL 119 MG/DL (<150)
[2017-07-08 14:06] LABS: ESTIMATED AVERAGE GLUCOSE 160 MG/DL (60-110); HEMOGLOBIN A1c 7.2 %
== END ==
LOC: M SFHCCLAY 07:47
DX: I48.91 Unspecified atrial fibrillation (principal); I10 Essential (primary) hypertension; E11.40 Type 2 diabetes mellitus with diabetic neuropathy, unspecified
CPT/HCPCS: 83036

== ENCOUNTER → 2017-07-10 | Outpatient (REF) | payer MEDICARE, MEDICAID ==
[2017-07-10 12:58] LABS: MALB URINE SIEMENS 9.4 MG/L; MAU/CREAT RATIO 5.2 MCG/MG (0.0-30.0)
== END ==
LOC: M SFHCCLAY 12:16
DX: I10 Essential (primary) hypertension (principal); E11.40 Type 2 diabetes mellitus with diabetic neuropathy, unspecified; I48.91 Unspecified atrial fibrillation
CPT/HCPCS: 82043

== ENCOUNTER → 2018-02-02 | Outpatient (REF) | payer MEDICARE, MEDICAID ==
[2018-02-02 12:48] LABS: ANION GAP 6 MEQ/L (8-16); BLOOD UREA NITROGEN 23 MG/DL (7-18); CALCIUM LEVEL 8.7 MG/DL (8.8-10.2); CARBON DIOXIDE LEVEL 28 MEQ/L (21-32); CHLORIDE LEVEL 107 MEQ/L (98-107); CREATININE FOR GFR 1.32 MG/DL (0.70-1.30); GLOMERULAR FILTRATION RATE 57.4 (>49); GLUCOSE, FASTING 152 MG/DL (70-100); POTASSIUM SERUM 4.4 MEQ/L (3.5-5.1); SODIUM LEVEL 141 MEQ/L (136-145)
[2018-02-02 13:06] LABS: ESTIMATED AVERAGE GLUCOSE 143 MG/DL (60-110); HEMOGLOBIN A1c 6.6 %
[2018-02-03 14:55] LABS: MALB URINE SIEMENS 10.3 MG/L
[2018-02-03 15:14] LABS: MAU/CREAT RATIO 6.8 MCG/MG (0.0-30.0)
== END ==
LOC: M SFHCCLAY 07:25
DX: I10 Essential (primary) hypertension (principal); E11.40 Type 2 diabetes mellitus with diabetic neuropathy, unspecified
CPT/HCPCS: 83036

== ENCOUNTER → 2018-02-25 | Outpatient (REF) | payer MEDICARE, MEDICAID ==
[2018-02-25 12:03] LABS: ANION GAP 11 MEQ/L (8-16); BLOOD UREA NITROGEN 24 MG/DL (7-18); CALCIUM LEVEL 8.8 MG/DL (8.8-10.2); CARBON DIOXIDE LEVEL 23 MEQ/L (21-32); CHLORIDE LEVEL 104 MEQ/L (98-107); CREATININE FOR GFR 1.31 MG/DL (0.70-1.30); GLOMERULAR FILTRATION RATE 57.8 (>49); GLUCOSE, FASTING 183 MG/DL (70-100); POTASSIUM SERUM 4.3 MEQ/L (3.5-5.1); SODIUM LEVEL 138 MEQ/L (136-145)
== END ==
LOC: M SFHCCLAY 08:01
DX: I51.7 Cardiomegaly (principal); E11.40 Type 2 diabetes mellitus with diabetic neuropathy, unspecified
CPT/HCPCS: 80048

== ENCOUNTER → 2018-09-23 | Outpatient (CLI) | payer MEDICARE, MEDICAID ==
[~2018-09-23] MED LIST changes: -/WARF5TA OR; +COUM1TAB17 OR
--- NOTE | 2018-09-23 16:00 | REP ---
Clinical: Shortness of breath Comparison: 10/15/2016 . Technique: PA and lateral. Findings: The mediastinum and cardiac silhouette are normal. The lung troy are clear and without acute consolidation, effusion, or pneumothorax. The skeletal structures are intact and normal. Impression: 1. No acute cardiopulmonary process.
== END ==
LOC: M CLY 15:31
PROVIDERS: ATTEND Nurse Practitioner Family
DX: R06.02 Shortness of breath (principal)
CPT/HCPCS: 71046; G0463

== ENCOUNTER → 2018-09-29 | Outpatient (REF) | payer MEDICARE, MEDICAID ==
[2018-09-29 13:26] LABS: ALBUMIN 3.8 GM/DL (3.2-5.2); CHOLESTEROL RISK RATIO 4.333 (<5); CREATININE FOR GFR 1.38 MG/DL (0.70-1.30); GLOMERULAR FILTRATION RATE 54.4 (>49); PHOSPHORUS LEVEL 3.2 MG/DL (2.5-4.9); POTASSIUM SERUM 4.3 MEQ/L (3.5-5.1)
[2018-09-29 14:35] LABS: HEMOGLOBIN A1c 7.2 %
== END ==
LOC: M SFHCCLAY 07:39
PROVIDERS: ATTEND Nurse Practitioner Family
DX: E11.40 Type 2 diabetes mellitus with diabetic neuropathy, unspecified (principal); I48.0 Paroxysmal atrial fibrillation; I27.0 Primary pulmonary hypertension

== ENCOUNTER → 2018-10-05 | Outpatient (REF) | payer MEDICARE, MEDICAID | LOC: M SFHCCLAY 11:29 | PROVIDERS: ATTEND Nurse Practitioner Family | DX: R19.7 Diarrhea, unspecified (principal) ==

== ENCOUNTER 2018-12-24 13:57 | Emergency (ER) | payer MEDICAID, MEDICARE ==
[~2018-12-24] VITALS: Ht 188 cm; Wt 134.4 kg
[2018-12-24] MEDS ORDERED: AMLO10TA5 (14:17)
[2018-12-24] MEDS ORDERED: METF500T13 (14:17)
[2018-12-24] MEDS ORDERED: FURO20TA2 (14:17)
[2018-12-24] MEDS ORDERED: LISI40TA (14:17)
[2018-12-24] MEDS ORDERED: METO1TAB33 (14:17)
[2018-12-24] MEDS ORDERED: METF10004 PO (14:17)
--- NOTE | 2018-12-24 15:44 | REP ---
Portable chest, 03:16 p.m., to AP views with the patient sitting: Comparison is the PA and lateral chest dated 09/23/2018. The lung troy are clear. The cardiac size is upper normal. The eliceo, mediastinum, and skeletal structures are unremarkable. Impression: Negative portable chest. There is no interval change. Electronically Signed by Keaton Flynn MD 12/24/2018 03:35 P
[2018-12-24 16:05] LABS: BASO % 0.4 % (0.0-1.0); EOS # 0.1 10^3/uL (0.0-0.50); EOS % 1.4 % (0.0-3.0); HEMATOCRIT 39.8 % (42.0-52.0); LYMPH # 1.5 10^3/uL (1.5-4.5); LYMPH % 15.8 % (24.0-44.0); MEAN CORPUSCULAR HEMOGLOBIN 28.8 pg (27.0-33.0); MEAN CORPUSCULAR HGB CONC 32.7 g/dl (32.0-36.5); MEAN CORPUSCULAR VOLUME 88.1 fl (80.0-96.0); MONO # 0.9 10^3/uL (0.0-0.8); MONO % 9.6 % (0.0-5.0); NEUTROPHILS # 6.9 10^3/uL (1.8-7.7); NEUTROPHILS % 72.5 % (36.0-66.0); PLATELET COUNT, AUTOMATED 187 10^3/uL (150-450); RED BLOOD COUNT 4.52 10^6/uL (4.30-6.10); WHITE BLOOD COUNT 9.6 10^3/uL (4.0-10.0)
[2018-12-24 16:19] LABS: INR 1.27; PARTIAL THROMBOPLASTIN TIME 34.3 SECONDS (25.0-38.4); PROTHROMBIN TIME 15.6 SECONDS (11.8-14.0)
[2018-12-24 16:48] LABS: ALBUMIN 3.8 GM/DL (3.2-5.2); BILIRUBIN,DIRECT 0.3 MG/DL (0.0-0.2); BILIRUBIN,TOTAL 0.9 MG/DL (0.2-1.0); C REACTIVE PROTEIN QUANTITATIV 1.18 MG/DL (0.00-0.30); CALCIUM LEVEL 9.4 MG/DL (8.8-10.2); CREATININE FOR GFR 1.69 MG/DL (0.70-1.30); FREE T4 1.08 NG/DL (0.76-1.46); MB/CK RELATIVE INDEX 2.11 (< OR =4); THYROID STIMULATING HORMONE 7.02 uIU/ML (0.358-3.740); TOTAL PROTEIN 7.5 GM/DL (6.4-8.2); TROPONIN I 0.04 NG/ML (< 0.10)
[2018-12-24 18:16] VITALS: BP 156/67
--- NOTE | 2018-12-25 08:16 | ECGEPIP ---
[facility] - ED Test Date: 2018-12-24 Pat Name: KORY ARANGO Department: Room: - Gender: Male Business Process Expert: : 1950 Requested By: KEYONNA Clinton Order Number: [id number] Reading MD: Bhavin Ruby Measurements Intervals Bulan Rate: 54 P: 162 VT: 111 QRS: -54 QRSD: 127 T: 98 QT: 455 QTc: 435 Interpretive Statements ATRIAL FIBRILLATION WIHT SLOW VENTRICULAR RATE \LEFT AXIS DEVIATION INTRAVENTRICULAR CONDUCTION DELAY RATE CHANGE COMPARED TO 10/15/16 Electronically Signed on 12-25-2018 8:16:15 EDT by Bhavin Ruby
== END 2018-12-24 18:45 | disposition home or self-care (01) ==
LOC: M ED 13:57
DX: Z04.89 Encounter for examination and observation for other specified reasons (principal); R00.1 Bradycardia, unspecified; I48.91 Unspecified atrial fibrillation; I10 Essential (primary) hypertension; E11.9 Type 2 diabetes mellitus without complications; Z79.84 Long term (current) use of oral hypoglycemic drugs; Z79.899 Other long term (current) drug therapy; Z82.49 Family history of ischemic heart disease and other diseases of the circulatory system; Z87.891 Personal history of nicotine dependence

== ENCOUNTER → 2019-06-28 | Outpatient (REF) | payer MEDICARE, MEDICAID ==
[~2019-06-28] MED LIST changes: +AMLO10TA5; +FURO20TA2; +LISI40TA; +METF10004 PO; +METF500T13; +METO1TAB33
[2019-06-28 12:55] LABS: BILIRUBIN,TOTAL 0.8 MG/DL (0.2-1.0); CALCIUM LEVEL 9.2 MG/DL (8.8-10.2); CREATININE FOR GFR 1.44 MG/DL (0.70-1.30); GLOMERULAR FILTRATION RATE 51.6 (>42); POTASSIUM SERUM 4.1 MEQ/L (3.5-5.1); THYROID STIMULATING HORMONE 6.49 uIU/ML (0.358-3.740); TOTAL PROTEIN 7.8 GM/DL (6.4-8.2)
[2019-06-28 13:35] LABS: HEMOGLOBIN A1c 7.8 %
== END ==
LOC: M SFHCCLAY 07:04
PROVIDERS: ATTEND Family Medicine
DX: I10 Essential (primary) hypertension (principal); E11.40 Type 2 diabetes mellitus with diabetic neuropathy, unspecified; I48.20 Chronic atrial fibrillation, unspecified

== ENCOUNTER → 2019-09-13 | Outpatient (REF) | payer MEDICARE, MEDICAID ==
[2019-09-14 13:01] LABS: ALBUMIN 4.3 GM/DL (3.2-5.2); CALCIUM LEVEL 9.7 MG/DL (8.8-10.2); CHOLESTEROL RISK RATIO 2.634 (<5); CREATININE FOR GFR 1.62 MG/DL (0.70-1.30); GLOMERULAR FILTRATION RATE 45.1 (>42); POTASSIUM SERUM 4.1 MEQ/L (3.5-5.1); TOTAL PROTEIN 8.1 GM/DL (6.4-8.2)
== END ==
LOC: M SFHCCLAY 16:59
PROVIDERS: ATTEND Family Medicine
DX: E78.2 Mixed hyperlipidemia (principal); I10 Essential (primary) hypertension
CPT/HCPCS: 80053; 80061; G0463

== ENCOUNTER → 2020-03-16 | Outpatient (REF) | payer MEDICARE, MEDICAID ==
[~2020-03-16] MED LIST changes: -AMLO10TA5; +AMLO1TAB25
[2020-03-16 13:23] LABS: HEMATOCRIT 41.9 % (42.0-52.0); HEMOGLOBIN 13.6 g/dl (13.5-17.5); MEAN CORPUSCULAR HEMOGLOBIN 28.4 pg (27.0-33.0); MEAN CORPUSCULAR HGB CONC 32.5 g/dl (32.0-36.5); MEAN CORPUSCULAR VOLUME 87.5 fl (80.0-96.0); PLATELET COUNT, AUTOMATED 176 10^3/uL (150-450); RED BLOOD COUNT 4.79 10^6/uL (4.30-6.10); WHITE BLOOD COUNT 5.6 10^3/uL (4.0-10.0)
[2020-03-16 13:49] LABS: ALBUMIN 3.7 GM/DL (3.2-5.2); ALT/SGPT 34 U/L (12-78); BLOOD UREA NITROGEN 18 MG/DL (7-18); CALCIUM LEVEL 9.2 MG/DL (8.8-10.2); CARBON DIOXIDE LEVEL 28 MEQ/L (21-32); CHLORIDE LEVEL 104 MEQ/L (98-107); CHOLESTEROL LEVEL 112 MG/DL (<200); CREATININE FOR GFR 1.26 MG/DL (0.70-1.30); GLOMERULAR FILTRATION RATE > 60.0 (>42); GLUCOSE, FASTING 131 MG/DL (70-100); HDL CHOLESTEROL 50 MG/DL (>40); LDL CHOLESTEROL 49 MG/DL (<100); NON-HDL-C 62 MG/DL; POTASSIUM SERUM 4.4 MEQ/L (3.5-5.1); SODIUM LEVEL 138 MEQ/L (136-145); TOTAL PROTEIN 7.4 GM/DL (6.4-8.2); TRIGLYCERIDES LEVEL 64 MG/DL (<150)
== END ==
LOC: M SFHCPLAZ 10:06
PROVIDERS: ATTEND Nurse Practitioner Adult Health
DX: I48.20 Chronic atrial fibrillation, unspecified (principal); E11.40 Type 2 diabetes mellitus with diabetic neuropathy, unspecified; E78.2 Mixed hyperlipidemia; Z23 Encounter for immunization
CPT/HCPCS: 36415; 80053; 80061; 83036; 84443; 85027; 90682; 90732; G0008; G0009; G0463

== ENCOUNTER 2020-06-12 12:13 | Emergency (ER) | payer MEDICARE, MEDICAID ==
[~2020-06-12] VITALS: Ht 188 cm; Wt 131.7 kg
[~2020-06-12 12:13] MED LIST changes: +LISI10TA22 PO; -LISI10TA4 PO; -LISI40TA; +LISI40TA4
--- OUTSIDE RECORDS SUMMARY | 2020-06-12 12:21 | CCD | Continuity of Care Document ---
Author Author J Carlos MCDERMOTT MD Organization Unknown Address [address] [place] [address] Phone [phone] Care Team Providers Care Set O Type Operator Name Role Phone Temo Iris Torres R.N. AUTM [phone] Problems Active Problems Provider Date Essential hypertension Quinten Garrison NP Onset: 04/25/2020 Social History Type Date Description Comments Sex Unknown ETOH Use Denies alcohol use Tobacco Use Start: Unknown End: Unknown Patient is a former smoker 1981 Recreational Drug Use Denies Drug Use Allergies, Adverse Reactions, Alerts Description No Known Drug Allergies Medications Active Medications SIG Qnty Indications Ordering Provide r Date Amlodipine Besylate 10mg Tablets 1 qd Unknown Atorvastatin Calcium 20mg Tablets 1 qd Unknown Eliquis 5mg Tablets 1 tab by mouth twice a day Unknown Furosemide 20mg Tablets 1 qd Unknown Metformin HCL 500mg Tablets 1 qam And 2 QHS Unknown Metoprolol Succinate ER 100mg Tablets ER 24HR 1 qd Unknown Lisinopril 20mg Tablets 1 qd Unknown Immunizations Description No Information Available Vital Signs Date Vital Result Comment 05/24/2020 11:48am BP Systolic 154 mmHg BP Diastolic 96 mmHg Heart Rate 132 /min Height 74 inches 6'2" Weight 298.00 lb BMI (Body Mass Index) 38.3 kg/m2 [place] Body Weight 190 lb Weight 135.173 kg BSA (Body Surface Area) 2.57 m2 Results Description No Information Available Procedures Description No Information Available Medical Devices Description No Information Available Encounters Description No Information Available Assessments Description No Information Available Plan of Treatment No Information Available Functional Status Description No Information Available Mental Status Description No Information Available Referrals Refer to Reason for Referral Status Appt Date Isaias Mcdermott JR, MD +HARRIS Created [address] [address] [phone]
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
--- OUTSIDE RECORDS SUMMARY | 2020-06-12 12:21 | CCD | Continuity of Care Document ---
Author Author J Carlos MCDERMOTT MD Organization Unknown Address [address] [place] [address] Phone [phone] Care Team Providers Care Edge Beader Name Role Phone Temo Iris Torres R.N. AUTM [phone] Problems Active Problems Provider Date Essential hypertension [...] lb BMI (Body Mass Index) 38.3 kg/m2 [place] Body Weight 190 lb Weight 135.173 kg [...] Mcdermott JR, MD +HARRIS Created [address] [address] [phone]
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
--- OUTSIDE RECORDS SUMMARY | 2020-06-12 12:22 | CCD ---
Author Author [facility] Organization [facility] Address Unknown Phone Unavailable Care Team Providers Care Cathode Ray Tube Assembler Name Role Phone Amandas, M Radha ARMY MANAGER Unavailable Unavailable Fons, M Radha ARMY MANAGER Unavailable Unavailable Fons, M Radha ARMY MANAGER Unavailable Unavailable Fons, M Radha ARMY MANAGER Unavailable Unavailable Fons, M Radha ARMY MANAGER Unavailable Unavailable Fons, M Radha ARMY MANAGER Unavailable Unavailable Fons, M Radha ARMY MANAGER Unavailable Unavailable Fons, M Radha ARMY MANAGER Unavailable Unavailable Fons, M Radha ARMY MANAGER Unavailable Unavailable Fons, M Radha ARMY MANAGER Unavailable Unavailable Fons, M Radha ARMY MANAGER Unavailable Unavailable Fons, M Radha ARMY MANAGER Unavailable Unavailable Fons, M Radha ARMY MANAGER Unavailable Unavailable Fons, M Radha ARMY MANAGER Unavailable Unavailable Fons, M Radha ARMY MANAGER Unavailable Unavailable Fons, M Radha ARMY MANAGER Unavailable Unavailable Fons, M Radha ARMY MANAGER Unavailable Unavailable Fons, M Radha ARMY MANAGER Unavailable Unavailable Fons, M Radha ARMY MANAGER Unavailable Unavailable Fons, M Radha ARMY MANAGER Unavailable Unavailable Fons, M Radha ARMY MANAGER Unavailable Unavailable Fons, M Radha ARMY MANAGER Unavailable Unavailable Fons, M Radha ARMY MANAGER Unavailable Unavailable Fons, M Radha ARMY MANAGER Unavailable Unavailable Fons, M Radha ARMY MANAGER Unavailable Unavailable Fons, M Radha ARMY MANAGER Unavailable Unavailable Fons, M Radha ARMY MANAGER Unavailable Unavailable Fons, M Radha ARMY MANAGER Unavailable Unavailable Fons, M Radha ARMY MANAGER Unavailable Unavailable Fons, M Radha ARMY MANAGER Unavailable Unavailable Fons, M Radha ARMY MANAGER Unavailable Unavailable Fons, M Radha ARMY MANAGER Unavailable Unavailable Fons, M Radha ARMY MANAGER Unavailable Unavailable Fons, M Radha ARMY MANAGER Unavailable Unavailable Fons, M Radha ARMY MANAGER Unavailable Unavailable Fons, M Radha ARMY MANAGER Unavailable Unavailable Fons, M Radha ARMY MANAGER Unavailable Unavailable Fons, M Radha ARMY MANAGER Unavailable Unavailable Fons, M Radha ARMY MANAGER Unavailable Unavailable Fons, M Radha ARMY MANAGER Unavailable Unavailable Fons, M Radha ARMY MANAGER Unavailable Unavailable Fons, M Radha ARMY MANAGER Unavailable Unavailable Fons, M Radha ARMY MANAGER Unavailable Unavailable Fons, M Radha ARMY MANAGER Unavailable Unavailable Fons, M Radha ARMY MANAGER Unavailable Unavailable Fons, M Radha ARMY MANAGER Unavailable Unavailable Fons, M Radha ARMY MANAGER Unavailable Unavailable Fons, M Radha ARMY MANAGER Unavailable Unavailable Fons, M Radha ARMY MANAGER Unavailable Unavailable Fons, M Radha ARMY MANAGER Unavailable Unavailable Fons, M Radha ARMY MANAGER Unavailable Unavailable Fons, M Radha ARMY MANAGER Unavailable Unavailable Fons, M Radha ARMY MANAGER Unavailable Unavailable Fons, M Radha ARMY MANAGER Unavailable Unavailable Fons, M Radha ARMY MANAGER Unavailable Unavailable Casanova, L Cheryle PA Unavailable Unavailable Casanova, L Cheryle PA Unavailable Unavailable Casanova, L Cheryle PA Unavailable Unavailable Casanova, L Cheryle PA Unavailable Unavailable Casanova, L Cheryle PA Unavailable Unavailable Casanova, L Cheryle PA Unavailable Unavailable Casanova, L Cheryle PA Unavailable Unavailable Casanova, L Cheryle PA Unavailable Unavailable Casanova, L Cheryle PA Unavailable Unavailable Casanova, L Cheryle PA Unavailable Unavailable Casanova, L Cheryle PA Unavailable Unavailable Casanova, L Cheryle PA Unavailable Unavailable Casanova, L Cheryle PA Unavailable Unavailable Casanova, L Cheryle PA Unavailable Unavailable Casanova, L Cheryle PA Unavailable Unavailable Casanova, L Cheryle PA Unavailable Unavailable Casanova, L Cheryle PA Unavailable Unavailable Casanova, L Cheryle PA Unavailable Unavailable Casanova, L Cheryle PA Unavailable Unavailable Casanova, L Cheryle PA Unavailable Unavailable Casanova, L Cheryle PA Unavailable Unavailable Casanova, L Cheryle PA Unavailable Unavailable Casanova, L Cheryle PA Unavailable Unavailable Casanova, L Cheryle PA Unavailable Unavailable Casanova, L Cheryle PA Unavailable Unavailable Casanova, L Cheryle PA Unavailable Unavailable Casanova, L Cheryle PA Unavailable Unavailable Casanova, L Cheryle PA Unavailable Unavailable Casanova, L Cheryle PA Unavailable Unavailable Casanova, L Cheryle PA Unavailable Unavailable Casanova, L Cheryle PA Unavailable Unavailable Casanova, L Cheryle PA Unavailable Unavailable Casanova, L Cheryle PA Unavailable Unavailable Casanova, L Cheryle PA Unavailable Unavailable Casanoav, L Cheryle PA Unavailable Unavailable Casanova, L Cheryle PA Unavailable Unavailable Re-disclosure Warning The records that you are about to access may contain information from federally-assisted alcohol or drug abuse programs. If such information is present, then the following federally mandated warning applies: This information has been disclosed to you from records protected by federal confidentiality rules (42 CFR part 2). The federal rules prohibit you from making any further disclosure of this information unless further disclosure is expressly permitted by the written consent of the person to whom it pertains or as otherwise permitted by 42 CFR part 2. A general authorization for the release of medical or other information is NOT sufficient for this purpose. The Federal rules restrict any use of the information to criminally investigate or prosecute any alcohol or drug abuse patient.The records that you are about to access may contain highly sensitive health information, the redisclosure of which is protected by Article 27-F of the [facility] Public Health law. If you continue you may have access to information: Regarding HIV / AIDS; Provided by facilities licensed or operated by the [facility] Office of Mental Health; or Provided by the [facility] Office for People With Developmental Disabilities. If such information is present, then the following [facility] mandated warning applies: This information has been disclosed to you from confidential records which are protected by state law. State law prohibits you from making any further disclosure of this information without the specific written consent of the person to whom it pertains, or as otherwise permitted by law. Any unauthorized further disclosure in violation of state law may result in a fine or snf sentence or both. A general authorization for the release of medical or other information is NOT sufficient authorization for further disc losure. Family History Family Member Name Family Member Gender Family Member Status Date o f Status Description Data Source(s) Unknown Male Problem MED[facility] ([facility] () Encounters Encounter Providers Location Date Indications Data Source(s ) [place] [address] [facility] [address] 05/09/2020 12:00:00 AM EST eCW1 ([facility]) Outpatient Referrer: Radha OSORIOCT-SYR 04/17/2020 09:36:51 AM EST [facility] Outpatient Attender: Radha REHMAN-SJP.JAXON 0 10:42:42 AM EST - 04/07/2020 12:20:30 PM EST [facility] [place]patient [address] [facility] [address] 03/16/2020 12:00:00 AM EST eCW1 ([facility]) [place] [address] [facility] [address] 02/21/2020 12:00:00 AM EDT eCW1 ([facility]) Outpatient Attender: Radha REHMAN-SJP.JAXON 0 12:00:00 AM EDT - 12/14/2019 03:18:25 PM EDT [facility] [place] [address] [facility] [address] 11/15/2019 12:00:00 AM EDT eCW1 ([facility]) [place] [address] [facility] [address] 09/28/2019 12:00:00 AM EDT eCW1 ([facility]) [facility] [address] [facility] [place] [address] 09/28/2019 12:00:00 AM EDT eCW1 ([facility]) Outpatient Attender: Cheryle REHMAN-SJPAdrianJAXON 12:00:00 AM EDT - 09/17/2019 12:18:49 PM EDT [facility] Outpatient [address] [place] [address], [place] [address] 09/13/2019 12:00:00 AM EDT eCW1 ([facility]) [address] [address] 09/13/2019 12:00:00 AM EDT eCW1 ([facility]) Outpatient Attender: Cheryle MARKSJAXON 11/2019 07:08:41 AM EDT - 09/03/2019 12:57:31 PM EDT [address] [address] 07/06/2019 12:00:00 AM EDT eCW1 ([facility]) Outpatient Attender: Cheryle NGUYEN 08/2019 12:00:00 AM EST [address] [address] 06/03/2019 12:00:00 AM EST eCW1 ([facility]) Outpatient Attender: Cheryle MARKSJAXON 08/2019 12:00:00 AM EST - 06/02/2019 04:38:00 PM EST [address] [address] 05/28/2019 12:00:00 AM EST eCW1 ([facility]) [address] [address] 05/05/2019 12:00:00 AM EST eCW1 ([facility]) Immunizations Vaccine Date Status Description Data Source(s) pneumococcal polysaccharide PPV23 03/16/2020 10:20:00 AM EST comple meredith eCW1 ([facility]) pneumococcal polysaccharide PPV23 03/16/2020 10:20:00 AM EST comple meredith eCW1 ([facility]) influenza, recombinant, quadrIvalent,injectable, prese rvative free 03/16/2020 09:26:00 AM EST completed [facility] influenza, recombinant, quadrIvalent,injectable, prese rvative free 03/16/2020 09:26:00 AM EST completed [facility]CW1 ([facility]) influenza, recombinant, quadrIvalent,injectable, prese rvative free 05/28/2019 01:32:00 PM EST completed eCW1 ([facility]) influenza, recombinant, quadrIvalent,injectable, prese rvative free 05/28/2019 01:32:00 PM EST completed eCW1 ([facility]) influenza, recombinant, quadrIvalent,injectable, prese rvative free 05/28/2019 01:32:00 PM EST completed eCW1 ([facility]) influenza, recombinant, quadrIvalent,injectable, prese rvative free 05/28/2019 01:32:00 PM EST completed eCW1 ([facility]) influenza, recombinant, quadrIvalent,injectable, prese rvative free 05/28/2019 01:32:00 PM EST completed eCW1 ([facility]) influenza, recombinant, quadrIvalent,injectable, prese rvative free 05/28/2019 01:32:00 PM EST completed eCW1 ([facility]) influenza, recombinant, quadrIvalent,injectable, prese rvative free 05/28/2019 01:32:00 PM EST completed eCW1 ([facility]) Medications Medication Brand Name Start Date Product Form Dose Route Admi nistrative Instructions Pharmacy Instructions Status Indications Reaction Description Data Source(s) atorvastatin 20 MG Oral Tablet atorvastatin (LIPITOR) 20 MG tablet atorvastatin (LIPITOR) 20 MG tablet 03/18/2020 12:00:00 AM EST active [facility] Lisinopril 20 MG Oral Tablet lisinopril (PRINIVIL,ZEST RIL) 20 MG tablet lisinopril (PRINIVIL,ZESTRIL) 20 MG tablet 02/21/2020 12:00:00 AM EDT active [facility] apixaban 5 MG Oral Tablet [Eliquis] ELIQUIS 5 MG TABS tablet ELIQUIS 5 MG TABS tablet 12/21/2019 12:00:00 AM EDT 5 mg Oral active Take 1 tablet (5 mg total) by mouth 2 (two) times a day [facility] Lisinopril 40 MG Oral Tablet lisinopril (PRINIVIL,ZEST RIL) 40 MG tablet lisinopril (PRINIVIL,ZESTRIL) 40 MG tablet 09/18/2019 12:00:00 AM EDT 40 mg Oral aborted Take 1 tablet (40 mg total) by mouth daily [facility] Lisinopril 20 MG Oral Tablet Lisinopril 20 MG 07/06/2019 12:00:00 A M EDT 1.0 {tablet} active Lisinopril 20 MG eCW1 ( [facility]) Lisinopril 20 MG Oral Tablet Lisinopril 20 MG 07/06/2019 12:00:00 A M EDT 1.0 {tablet} active Lisinopril 20 MG eCW1 ( [facility]) Lisinopril 20 MG Oral Tablet Lisinopril 20 MG 07/06/2019 12:00:00 A M EDT 1.0 {tablet} active Lisinopril 20 MG eCW1 ( [facility]) Lisinopril 20 MG Oral Tablet Lisinopril 20 MG 07/06/2019 12:00:00 A M EDT 1.0 {tablet} active Lisinopril 20 MG eCW1 ( [facility]) Lisinopril 20 MG Oral Tablet Lisinopril 20 MG 07/06/2019 12:00:00 AM E DT active 1 tablet eCW1 ([facility]) Lisinopril 20 MG Oral Tablet Lisinopril 20 MG 07/06/2019 12:00:00 A M EDT 1.0 {tablet} active Lisinopril 20 MG eCW1 ( [facility]) Lisinopril 20 MG Oral Tablet Lisinopril 20 MG 07/06/2019 12:00:00 A M EDT 1.0 {tablet} active Lisinopril 20 MG eCW1 ( [facility]) 24 HR metoprolol succinate 100 MG Extend ed Release Oral Tablet metoprolol succinate (TOPROL-XL) 100 MG 24 hr tablet metoprolol succinate (TOPROL-XL) 100 MG 24 hr tablet 05/28/2019 12:00:00 AM EST 100 mg Oral ac tive Take 100 mg by mouth daily [facility] Furosemide 20 MG Oral Tablet furosemide (LASIX) 20 MG tablet furosemide (LASIX) 20 MG tablet 05/28/2019 12:00:00 AM EST 20 mg Oral activ e Take 20 mg by mouth daily [facility] Metformin hydrochloride 500 MG Oral Tablet metFORMIN ( GLUCOPHAGE) 500 MG tablet metFORMIN (GLUCOPHAGE) 500 MG tablet 04/18/2019 12:00:00 AM EST 150 0 mg Oral active Take 1,500 mg by mouth da paola 1 TAB IN THE AM, 2 IN THE EVENING [facility] Insurance Providers Payer name Policy type / Coverage type Policy ID Covered green party ID Covered green party's relationship to adams Policy [place] Plan Information EMEDNY [id number] SP [id number] [employer] [id number] SP 5 [id number] [employer]ARE [id number] Lucie 5 [id number] [employer]ICARE [id number] MEDICAID [id number] SP [id number] [facility] [place] [id number] S 50 [id number] ANS-Medicaid [id number] ANSI-Medicare Part B [id number] ANSI-Not a Secondary Insurance [id number] ANSI-Not a Secondary Insurance [id number] ANSI-Medicare Part B [id number] ANSI-Medicaid [id number] ANSI-Medicare Part B [id number] ANSI-Medicaid [id number] ANSI-Not a Secondary Insurance [id number] ANSI-Medicare Part B [id number] ANSI-Not a Secondary Insurance [id number] ANSI-Medicaid [id number] ANSI-Medicaid [id number] ANSI-Not a Secondary Insurance [id number] ANSI-Medicare Part B [id number] ANSI-Medicaid [id number] ANSI-Not a Secondary Insurance [id number] ANSI-Medicare Part B [id number] ANSI-Medicare Part B [id number] ANSI-Not a Secondary Insurance [id number] ANSI-Medicaid [id number] ANSI-Not a Secondary Insurance [id number] ANSI-Medicare Part B [id number] ANSI-Medicaid [id number] ANSI-Not a Secondary Insurance [id number] ANSI-Medicaid [id number] ANSI-Medicare Part B [id number] ANSI-Not a Secondary Insurance [id number] ANSI-Medicaid [id number] ANSI-Medicare Part B [id number] ANSI-Not a Secondary Insurance [id number] ANSI-Medicaid [id number] ANSI-Medicare Part B [id number] ANSI-Medicare Part B [id number] ANSI-Not a Secondary Insurance [id number] ANSI-Medicaid [id number] [place] MED[place]ARE [id number] ANSI-Not a Secondary Insurance [id number] ANSI-Medicaid [id number] ANSI-Medicare Part B [id number] ANSI-Not a Secondary Insurance [id number] ANSI-Medicaid [id number] ANSI-Medicare Part B [id number] ANSI-Medicare Part B [id number] ANSI-Medicaid [id number] ANSI-Not a Secondary Insurance [id number] ANSI-Not a Secondary Insurance [id number] ANSI-Medicare Part B [id number] ANSI-Medicaid [id number] [place] Medicare Commercial [id number] Self [id number] MEDICARE C [id number] S [id number] A MEDICARE [id number] SP [id number] A Problems, Conditions, and Diagnoses Code Display Name Description Problem Type Effective Dates Data Source(s) 34849675 Essential hypertension Essential hypertension Problem 04/25/2020 12:00:00 AM EST MEDENT ([facility], ) E78.2 [id number] Mixed hyperlipidemia Problem 09/13/2019 12:0 0:00 AM EDT eCW1 ([facility]) N18.3 [id number] Chronic renal diseas e, stage 3, moderately decreased glomerular filtration rate (GFR) between 30-59 mL/min/1.73 square meter Problem 09/13/2019 12:00:00 AM EDT eCW1 ([facility]) E78.2 [id number] Mixed hyperlipidemia Problem 09/13/2019 12:0 0:00 AM EDT eCW1 ([facility]) N18.3 [id number] Chronic renal diseas e, stage 3, moderately decreased glomerular filtration rate (GFR) between 30-59 mL/min/1.73 square meter Problem 09/13/2019 12:00:00 AM EDT eCW1 ([facility]) E11.9 Type 2 diabetes mellitus wit hout complication, without long-term current use of insulin Type 2 diabetes mellitus without complic ation, without long-term current use of insulin [id number] 06/02/2019 12:00:00 AM EST [facility] E11.9 Type 2 diabetes mellitus without complic ations Type 2 diabetes mellitus without complic Diagnosis 04/07/2020 10:42:42 AM EST [facility] I48.91 Unspecified atrial fibrillation Unspecified atri al fibrillation Diagnosis 04/07/2020 10:42:42 AM EST [facility] I26.99 Other pulmonary embolism without acute c or pulmonale Other pulmonary embolism without acute c Diagnosis 04/07/2020 10:42:42 AM EST [facility] I42.9 Cardiomyopathy, unspecified Cardiomyopathy, unspecifie d Diagnosis 04/07/2020 10:42:42 AM [facility] Z68.39 Body mass index (BMI) 39.0-39.9, adult B keven mass index (BMI) 39.0-39.9, adult Diagnosis 04/07/2020 10:42:42 AM [facility] E66.01 Morbid (severe) obesity due to excess ca lories Morbid (severe) obesity due to excess ca Diagnosis 04/07/2020 10:42:42 AM [facility] I10 Essential (primary) hypertension Essential (primary) h ypertension Diagnosis 04/07/2020 10:42:42 AM [facility] I49.5 Sick sinus syndrome Sick sinus syndrome Diagnosis 0 09/17/2019 10:53:09 AM EDT [facility] E78.2 Mixed hyperlipidemia Mixed hyperlipidemia Diagnosis 09/03/2019 07:08:41 AM EDT [facility] Surgeries/Procedures Procedure Description Date Indications Data Source(s) POCT AMB EKG POCT AMB EKG Routine 04/07/2020 1:22 PM EST Atrial fibrillation 04/07/2020 06:22:00 PM EST Atrial fibrillati on [facility] Atrial fibrillation Immunization: Flublok Quadrivalent (18 years & older) 0.5mL IM (Influenza) 03/16/2020 12:00:00 AM EST eCW1 ([facility]) PNEUMOCOCCAL POLYSAC VACCINE 23-V 2 />YR SUBQ/IM 03/16 12:00:00 AM EST eCW1 ([facility]) Annual wellness visit, includes a person alized prevention plan of service (pps), subsequent visit 05/28/2019 12:00:00 AM EST eCW 1 ([facility]) RIV4 VACC RECOMBINANT DNA IM 05/28/2019 12:00:00 AM ES T eCW1 ([facility]) Administration of influenza virus vaccine 05/28/2019 1 2:00:00 AM EST eCW1 ([facility]) Results ID Date Data Source [id number] 04/29/2020 03:39:04 PM EST [facility] Name Value Range Interpretation Code Description Data Kaila rce(s) Supporting Document(s) &PDF [facility] XXWMEt7wIpYXHnJv21/BSXhbYWVxz9RlTBfbJVq3FHgcFQDsQ9NhjXcfYYJQRvEKRtdCKYPJBT7THUNh 0b3 JoSIQuBwWEpIP4FJ6zECXxcrZgpkT6aO6eHN7KYMZ+Xq4NNO1pn7JuPVt6WNFic6ZkGCwoJLz3E9NotV AsgoOnFptkjJAKAQMuICPgW6rvoys9qOZtYDs8Vx5SBhVkn2TbYJZrZCdNwg5fOVVWADZ+w9b2F45mMS 3ZFaycwj8vqJKQSCPfeNT+YSZPlNWAAfR70VHYLX+x QwhUMtMFBvXD3Q235IwUFQfc100sEJmprLL7t78PEb9SE+K214Y9y9SdtfLdMDTv9iMCrpCNoUnQUJ4T Jdn+rp8tp3YoYWyubg6bRTJ3158HhO3/kCfofCebqCOge9YkW0uwXrZMexrewZ23W0pDK4ZzxjIDXmSa hGGQUIdDBv8oDlOzuLtECMXiASJCuemS/lWAQVKAf+ [file] AgICAgICAgICAgICAgICAgICAgICAgICAgICAgICAg DZGaSRTdYGNpGKFmFCCfWZUnEZOeCAYhJFScTATbEDJmXGIiJYEkJPChINPjFPNyCXIzODWzGPSmCU2E ICAgICAgICAgICAgICAgICAgICAgICAgICAgICAgICAgICAgICAgICAgICAgICAgICAgICAgICAgICAg ICAgICAgICAgICAgICAgICAgICAgICAgICAgICAgIC JdSWCbPNLyWK7OLXHrMUCaNPZjDNLnFDOuIXUpHBLfHLTzOGGtAJIaEWMiJJVaPWWxFIVhZFKqSYKeSO OpPKZgMRYjBQNhPBFkNPKvHQWwHLJiMDXgBUGyPGTsGIWyWRAwEXUjBOAvAOOmSOWbED5UTPSrYJFhKQ AgICAgICAgICAgICAgICAgICAgICAgICAgICAgICAg ICAgICAgICAgICAgICAgICAgICAgICAgICAgICAgICAgICAgICAgICAgICAgICAgICAgICAgICAgICAg QB4XYOEtLJIqSWDpKSCwVCRzSMSxOYErUKCgRXPdQJUsTEJsHKCfDYQgGZGiXEAfGAGpDIJmRGMdZQLz ICAgICAgICAgICAgICAgICAgICAgICAgICAgICAgIC HyHIDvNNWbJYLbCR9QTEFgZKEzKWTrOFSrFTHpMRIfHELrGDJsYRBtTSFrHTFeXGKfWMRyJRVaFUApND AeQKSpSGIbSXWlBFYlWYIwIPVsPXNeJIYmMNPjTFFtGRVfZHHpEWScVFLlGRGrWMLuSKNfLY3EHFLnAF AgICAgICAgICAgICAgICAgICAgICAgICAgICAgICAg ICAgICAgICAgICAgICAgICAgICAgICAgICAgICAgICAgICAgICAgICAgICAgICAgICAgICAgICAgICAg YLLlJV4CFOYzVTSgMCDhDCEvDQSrLIFxFISpQMUkJGHuTZApNFDzBMIePARoDBJsLEElMQWsFDFpNMXy ICAgICAgICAgICAgICAgICAgICAgICAgICAgICAgIC PzGWPjRJBhUEMlWERcLW4CUKZvTFBcXXUxZIEuJBYtINQmVFBeBUQhJUWwUEKpLAUuCCVjVFTjZIBbBU QkNHTwOMJvPTLwWWPyALCxIYTlVBJtMNHbCEWmRILkEYYkUKCiYAVrGQUwWNDqGCCvIPWyCERhBJ0LWE AgICAgICAgICAgICAgICAgICAgICAgICAgICAgICAg ICAgICAgICAgICAgICAgICAgICAgICAgICAgICAgICAgICAgICAgICAgICAgICAgICAgICAgICAgICAg GANaYVIzIK4ULY07wOEet3M4MLYaNX1fbct/Qb4RUZhjahEpnRZsSL5CHkXqFW8bxr7VUvJgTP7iky0X IDsLMtLpY3K2pIUgLWYzNSGKClRaL60qCUkmXl87RQ jrACJvIvAlAZe1Tj4PCvHrC9boKKNmCjO7FRQxPcCrZOgqLO9Gg9YcpFHzGGu+Si1ZIP0tk0FeUCcqKI ApOP0sbc8TILkZLaTdN3A5dJJgC6M2BFiwHh1IRWMySFZgFXyfDEAWTAppWA4FTX2jexG8VD7MfVMtKV RzHYIthSDcEYw0A25rnVNeLHlfYJ2KQJB+Nemesio+Pg0K LFJtTOWxGJDhTkGnOFSZLyUaV03tmSPhZBCnNJB9CCIhDg2IRJNaA0YtyfEwoHtljuEcDWOmTJORWB9T HNkyabYhqYYhjBzlJY55jQofHB8DIf0QIlDpEN9kax5LfOEmIm9APXHeCG0TCCDiMWGjHPVcAQB6ISGd EfMtFHcaWNKgIRRkTEB3JOHlVSRoMD3NIjPpXNNkQA WdEbLzFYYzSFGhjh7XCJVmPYDuBnV0UKPnMGZuCPZbYVnzYPBcTAZcFUl6AJNwZSMoXZ0HNhGjCFHsVJ CxKbtbBBRyJWWdsb2DURUqYLSqScZ1XtZhUWXeQYSwFEwiYUGnWNUhVMEmSTYmHECfKT9RMnGjJLHsML F9UdhqCSMxXTKgmc1JLUBuEMEtGyfzMHDuVRLfJCLz QPnbQPAzWDC0YNC4UWVfJTGtTB3IWtGtJANuPALzUfhgZAQxCVGxzp6EXRWbTOYmZSM1HMRcBLNyULLg VYpxEXVnUNZ5ByVuYEQnEJZvNP2VRuSqWBMbFOF1DBAkSGDwXEVczp6DNASfQPIvCqF1RZEnBYGqNTGz UVyfHZPiVKQlGtikSTYeCCRoAA1PIkDiHYVjMSTkBQ bhVQDgATVwju6ASBDrSOCnOFtrHTEqIXVwMQCbSXtyOCObRJH0USv4FHUcMIKdNW1VThVtJAqgQVUSBq b3BRyfX2j4JNLgLM0SI5Ejr3RePOlfHFKVZVyzYM8vlwTzUFScOv4RO8tXJxt6R2AoI3I0ZQg4EYHgDI N9LHjiWvGxClu7CaEwBpVwVV5yHTNfKFXxJAKfAOGi JLZpIrQ2TBBrSTU9ZohoEGM1FHI3FjIaNE8PIi0OHbY7QRB3lFWaRh5XCTxzReHDZoVqPY3YIJf= Procedure Social History Code Duration Value Status Description Data Source(s ) Alcohol intake 04/07/2020 12:00:00 AM EST Not Currently completed [facility] Smoking 04/07/2020 12:00:00 AM EST Former smoker completed Former smoker [facility] Smoking 03/16/2020 12:00:00 AM EST Former Smoker completed Former Smoker eCW1 ([facility]) Smoking 03/16/2020 12:00:00 AM EST Former Smoker completed Former Smoker eCW1 ([facility]) Smoking 09/13/2019 12:00:00 AM EDT Former Smoker completed Former Smoker eCW1 ([facility]) Smoking 09/13/2019 12:00:00 AM EDT Former Smoker completed Former Smoker eCW1 ([facility]) Smoking 09/13/2019 12:00:00 AM EDT Former Smoker completed Former Smoker eCW1 ([facility]) Smoking 09/13/2019 12:00:00 AM EDT Former Smoker completed Former Smoker eCW1 ([facility]) Vital Signs ID Date Data Source UNK Name Value Range Interpretation Code Description Data Source(s) Body surface area Derived from formula 2.57 m2 2.57 m2 [facility] ([facility]) Body weight 135.173 kg 135.173 kg [facility] ([facility]) [place] body weight 190 [lb_av] 190 [lb_av] [facility] T ([facility]) Body mass index (BMI) [Ratio] 38.3 kg/m2 38.3 k g/m2 [facility] ([facility]) Body weight 298.00 [lb_av] 298.00 [lb_av] [facility] T ([facility]) Body height 74 [in_i] 74 [in_i] [facility] ([facility]) 6'2" Heart rate 132 /min 132 /min [facility] ([facility]) Diastolic blood pressure 96 mm[Hg] 96 mm[Hg] [facility] ([facility]) Systolic blood pressure 154 mm[Hg] 154 mm[Hg] [facility] Oxygen saturation in Arterial blood by Pulse oximetry 97 % 97 % [facility] Body mass index (BMI) [Ratio] 38.52 kg/m2 38.52 kg/m2 [facility] Body weight 132.45 kg 132.45 kg [facility] Body height 185.4 cm 185.4 cm [facility] Heart rate 88 /min 88 /min [facility] Diastolic blood pressure 70 mm[Hg] 70 mm[Hg] [facility] Systolic blood pressure 150 mm[Hg] 150 mm[Hg] [facility] Diastolic blood pressure 78 mm[Hg] 78 mm[Hg] eCW1 ([facility]) Systolic blood pressure 130 mm[Hg] 130 mm[Hg] e CW1 ([facility]) Body temperature 98.1 [degF] 98.1 [degF] eCW1 ( [facility]) Respiratory rate 20 /min 20 /min eCW1 ([facility]) Heart rate 110 /min 110 /min eCW1 ([facility]) Body mass index (BMI) [Ratio] 37.61 kg/m2 37.61 kg/m2 eCW1 ([facility]) Body height 74 [in_i] 74 [in_i] eCW1 ([facility]) Body weight 293.0 [lb_av] 293.0 [lb_av] eCW1 ([facility]) Diastolic blood pressure 84 mm[Hg] 84 mm[Hg] eCW1 ([facility]) Systolic blood pressure 126 mm[Hg] 126 mm[Hg] e CW1 ([facility]) Body temperature 97.9 [degF] 97.9 [degF] eCW1 ( [facility]) Respiratory rate 18 /min 18 /min eCW1 ([facility]) Heart rate 113 /min 113 /min eCW1 ([facility]) Body mass index (BMI) [Ratio] 37.10 kg/m2 37.10 kg/m2 eCW1 ([facility]) Body height 74 [in_i] 74 [in_i] eCW1 ([facility]) Body weight 289 [lb_av] 289 [lb_av] eCW1 ([facility]) Diastolic blood pressure 86 mm[Hg] 86 mm[Hg] eCW1 ([facility]) Systolic blood pressure 148 mm[Hg] 148 mm[Hg] e CW1 ([facility]) Body temperature 98 [degF] 98 [degF] eCW1 ([facility]) Respiratory rate 18 /min 18 /min eCW1 ([facility]) Heart rate 72 /min 72 /min eCW1 ([facility]) Body mass index (BMI) [Ratio] 38.13 kg/m2 38.13 kg/m2 eCW1 ([facility]) Body height 74 [in_us] 74 [in_us] eCW1 ([facility]) Body weight Measured 297 [lb_av] 297 [lb_av] eC W1 ([facility]) Patient Treatment Plan of Care Planned Activity Planned Date Details Description Data Source (s) atorvastatin 20 MG Oral Tablet 03/18/2020 12:00:00 AM EST [facility] Lisinopril 20 MG Oral Tablet 02/21/2020 12:00:00 AM EDT [facility] apixaban 5 MG Oral Tablet [Eliquis] 12/21/2019 12:00:00 AM EDT [facility] Lisinopril 40 MG Oral Tablet 09/18/2019 12:00:00 AM EDT [facility] Lisinopril 20 MG Oral Tablet 07/06/2019 12:00:00 AM EDT eCW1 ([facility]) Lisinopril 20 MG Oral Tablet 07/06/2019 12:00:00 AM EDT eCW1 ([facility]) Lisinopril 20 MG Oral Tablet 07/06/2019 12:00:00 AM EDT eCW1 ([facility]) Lisinopril 20 MG Oral Tablet 07/06/2019 12:00:00 AM EDT eCW1 ([facility]) Lisinopril 20 MG Oral Tablet 07/06/2019 12:00:00 AM EDT eCW1 ([facility]) Lisinopril 20 MG Oral Tablet 07/06/2019 12:00:00 AM EDT eCW1 ([facility]) Lisinopril 20 MG Oral Tablet 07/06/2019 12:00:00 AM EDT eCW1 ([facility]) 24 HR metoprolol succinate 100 MG Extended Release Ora l Tablet 05/28/2019 12:00:00 AM [facility] Furosemide 20 MG Oral Tablet 05/28/2019 12:00:00 AM [facility] Metformin hydrochloride 500 MG Oral Tablet 04/18/2019 12:00:00 AM E [facility]
--- OUTSIDE RECORDS SUMMARY | 2020-06-12 13:04 | CCD ---
Author Author [facility] Organization [facility] Address Unknown Phone Unavailable Care Team Providers Care It Application Administrator Name Role Phone Amandas, M Radha WIG SALES CONSULTANT Unavailable Unavailable Fons, M Radha WIG SALES CONSULTANT Unavailable Unavailable Fons, M Radha WIG SALES CONSULTANT Unavailable Unavailable Fons, M Radha WIG SALES CONSULTANT Unavailable Unavailable Fons, M Radha WIG SALES CONSULTANT Unavailable Unavailable Fons, M Radha WIG SALES CONSULTANT Unavailable Unavailable Fons, M Radha WIG SALES CONSULTANT Unavailable Unavailable Fons, M Radha WIG SALES CONSULTANT Unavailable Unavailable Fons, M Radha WIG SALES CONSULTANT Unavailable Unavailable Fons, M Radha WIG SALES CONSULTANT Unavailable Unavailable Fons, M Radha WIG SALES CONSULTANT Unavailable Unavailable Fons, M Radha WIG SALES CONSULTANT Unavailable Unavailable Fons, M Radha WIG SALES CONSULTANT Unavailable Unavailable Fons, M Radha WIG SALES CONSULTANT Unavailable Unavailable Fons, M Radha WIG SALES CONSULTANT Unavailable Unavailable Fons, M Radha WIG SALES CONSULTANT Unavailable Unavailable Fons, M Radha WIG SALES CONSULTANT Unavailable Unavailable Fons, M Radha WIG SALES CONSULTANT Unavailable Unavailable Fons, M Radha WIG SALES CONSULTANT Unavailable Unavailable Fons, M Radha WIG SALES CONSULTANT Unavailable Unavailable Fons, M Radha WIG SALES CONSULTANT Unavailable Unavailable Fons, M Radha WIG SALES CONSULTANT Unavailable Unavailable Fons, M Radha WIG SALES CONSULTANT Unavailable Unavailable Fons, M Radha WIG SALES CONSULTANT Unavailable Unavailable Fons, M Radha WIG SALES CONSULTANT Unavailable Unavailable Fons, M Radha WIG SALES CONSULTANT Unavailable Unavailable Fons, M Radha WIG SALES CONSULTANT Unavailable Unavailable Fons, M Radha WIG SALES CONSULTANT Unavailable Unavailable Fons, M Radha WIG SALES CONSULTANT Unavailable Unavailable Fons, M Radha WIG SALES CONSULTANT Unavailable Unavailable Fons, M Radha WIG SALES CONSULTANT Unavailable Unavailable Fons, M Radha WIG SALES CONSULTANT Unavailable Unavailable Fons, M Radha WIG SALES CONSULTANT Unavailable Unavailable Fons, M Radha WIG SALES CONSULTANT Unavailable Unavailable Fons, M Radha WIG SALES CONSULTANT Unavailable Unavailable Fons, M Radha WIG SALES CONSULTANT Unavailable Unavailable Fons, M Radha WIG SALES CONSULTANT Unavailable Unavailable Fons, M Radha WIG SALES CONSULTANT Unavailable Unavailable Fons, M Radha WIG SALES CONSULTANT Unavailable Unavailable Fons, M Radha WIG SALES CONSULTANT Unavailable Unavailable Fons, M Radha WIG SALES CONSULTANT Unavailable Unavailable Fons, M Radha WIG SALES CONSULTANT Unavailable Unavailable Fons, M Radha WIG SALES CONSULTANT Unavailable Unavailable Fons, M Radha WIG SALES CONSULTANT Unavailable Unavailable Fons, M Radha WIG SALES CONSULTANT Unavailable Unavailable Fons, M Radha WIG SALES CONSULTANT Unavailable Unavailable Fons, M Radha WIG SALES CONSULTANT Unavailable Unavailable Fons, M Radha WIG SALES CONSULTANT Unavailable Unavailable Fons, M Radha WIG SALES CONSULTANT Unavailable Unavailable Fons, M Radha WIG SALES CONSULTANT Unavailable Unavailable Fons, M Radha WIG SALES CONSULTANT Unavailable Unavailable Fons, M Radha WIG SALES CONSULTANT Unavailable Unavailable Fons, M Radha WIG SALES CONSULTANT Unavailable Unavailable Fons, M Radha WIG SALES CONSULTANT Unavailable Unavailable Fons, M Radha WIG SALES CONSULTANT Unavailable Unavailable Casanova, L Cheryle PA Unavailable [...] is protected by Article 27-F of the [facility] Public Health law. If you continue you may have access to information: Regarding HIV / AIDS; Provided by facilities licensed or operated by the [facility] Office of Mental Health; or Provided by the [facility] Office for People With Developmental Disabilities. If such information is present, then the following [facility] mandated warning applies: This information has been [...] law may result in a fine or correction sentence or both. A general authorization for the release of medical or other information is NOT sufficient authorization for further disc losure. Family History Family Member Name Family Member Gender Family Member Status Date o f Status Description Data Source(s) Unknown Male Problem MEDENT ([facility] () Encounters Encounter Providers Location Date Indications Data Source(s ) Unknown [address] [facility] [address] 05/09/2020 12:00:00 AM EST eCW1 ([facility]) Outpatient Referrer: Radha OSORIOCT-SYR 04/17/2020 09:36:51 AM EST [facility] Outpatient Attender: Radha REHMAN-SJP.JAXON 0 10:42:42 AM EST - 04/07/2020 12:20:[address] [facility] [address] [facility] [address] 03/16/2020 12:00:00 AM EST eCW1 ([facility]) [place] [address] [facility] [address] 02/21/2020 12:00:00 AM EDT eCW1 ([facility]) Outpatient Attender: Radha REHMAN-SJP.JAXON 0 12:00:00 AM EDT - 12/14/2019 03:18:[address] [facility] [place] [address] [facility] [address] 11/15/2019 12:00:00 AM EDT eCW1 ([facility]) [place] [address] [facility] [address] 09/28/2019 12:00:00 AM EDT eCW1 ([facility]) [facility] [address] [facility] [place] [address] 09/28/2019 12:00:00 AM EDT eCW1 ([facility]) Outpatient Attender: Cheryle REHMAN-SJPAdrianJAXON 12:00:00 AM EDT - 09/17/2019 12:18:49 PM EDT [facility] Outpatient [address] [place] [address], [place] [address] 09/13/2019 12:00:00 AM EDT eCW1 ([facility]) [address] [address] 09/13/2019 12:00:00 AM EDT eCW1 ([facility]) Outpatient Attender: Cheryle MARKSJAXON 11/2019 07:08:41 AM EDT - 09/03/2019 12:57:31 PM EDT [address] [address] 07/06/2019 12:00:00 AM EDT eCW1 ([facility]) Outpatient Attender: Cheryle NGUYEN 08/2019 12:00:00 AM EST [address] [address] 06/03/2019 12:00:00 AM EST eCW1 ([facility]) Outpatient Attender: Cheryle MARKSJAXON 08/2019 12:00:00 AM EST - 06/02/2019 04:38:00 PM EST [address] [address] 05/28/2019 12:00:00 AM EST eCW1 ([facility]) [address] [address] 05/05/2019 12:00:00 AM EST eCW1 ([facility]) Immunizations Vaccine Date Status Description Data Source(s) pneumococcal polysaccharide PPV23 03/16/2020 10:20:00 AM EST comple meredith eCW1 ([facility]) pneumococcal polysaccharide PPV23 03/16/2020 10:20:00 AM EST comple meredith eCW1 ([facility]) influenza, recombinant, quadrIvalent,injectable, prese rvative free 03/16/2020 09:26:00 AM EST completed eCW1 ([facility]) influenza, recombinant, quadrIvalent,injectable, prese rvative free 03/16/2020 09:26:00 AM EST completed eCW1 ([facility]) influenza, recombinant, quadrIvalent,injectable, prese rvative free 05/28/2019 01:32:00 PM EST completed eCW1 ([facility]) influenza, recombinant, quadrIvalent,injectable, prese rvative free 05/28/2019 01:32:00 PM EST completed eCW1 ([facility]) influenza, recombinant, quadrIvalent,injectable, prese rvative free 05/28/2019 01:32:00 PM EST completed eCW1 ([facility]) influenza, recombinant, quadrIvalent,injectable, prese rvative free 05/28/2019 01:32:00 PM EST completed eCW1 ([facility]) influenza, recombinant, quadrIvalent,injectable, prese rvative free 05/28/2019 01:32:00 PM EST completed eCW1 ([facility]) influenza, recombinant, quadrIvalent,injectable, prese rvative free 05/28/2019 01:32:00 PM EST completed eCW1 ([facility]) influenza, recombinant, quadrIvalent,injectable, prese rvative free 05/28/2019 01:32:00 PM EST completed eCW1 ([facility]) Medications Medication Brand Name Start Date Product Form Dose Route Admi nistrative Instructions Pharmacy Instructions Status Indications Reaction Description Data Source(s) atorvastatin 20 MG Oral Tablet atorvastatin (LIPITOR) 20 MG tablet atorvastatin (LIPITOR) 20 MG tablet 03/18/2020 12:00:00 AM EST active [facility] Lisinopril 20 MG Oral Tablet lisinopril (PRINIVIL,ZEST RIL) 20 MG tablet lisinopril (PRINIVIL,ZESTRIL) 20 MG tablet 02/21/2020 12:00:00 AM EDT active [facility] apixaban 5 MG Oral Tablet [Eliquis] ELIQUIS 5 MG TABS tablet ELIQUIS 5 MG TABS tablet 12/21/2019 12:00:00 AM EDT 5 mg Oral active Take 1 tablet (5 mg total) by mouth 2 (two) times a day [facility] Lisinopril 40 MG Oral Tablet lisinopril (PRINIVIL,ZEST RIL) 40 MG tablet lisinopril (PRINIVIL,ZESTRIL) 40 MG tablet 09/18/2019 12:00:00 AM EDT 40 mg Oral aborted Take 1 tablet (40 mg total) by mouth daily [facility] Lisinopril 20 MG Oral Tablet Lisinopril 20 MG 07/06/2019 12:00:00 A M EDT 1.0 {tablet} active Lisinopril 20 MG eCW1 ( [facility]) Lisinopril 20 MG Oral Tablet Lisinopril 20 MG 07/06/2019 12:00:00 A M EDT 1.0 {tablet} active Lisinopril 20 MG eCW1 ( [facility]) Lisinopril 20 MG Oral Tablet Lisinopril 20 MG 07/06/2019 12:00:00 A M EDT 1.0 {tablet} active Lisinopril 20 MG eCW1 ( [facility]) Lisinopril 20 MG Oral Tablet Lisinopril 20 MG 07/06/2019 12:00:00 A M EDT 1.0 {tablet} active Lisinopril 20 MG eCW1 ( [facility]) Lisinopril 20 MG Oral Tablet Lisinopril 20 MG 07/06/2019 12:00:00 AM E DT active 1 tablet eCW1 ([facility]) Lisinopril 20 MG Oral Tablet Lisinopril 20 MG 07/06/2019 12:00:00 A M EDT 1.0 {tablet} active Lisinopril 20 MG eCW1 ( [facility]) Lisinopril 20 MG Oral Tablet Lisinopril 20 MG 07/06/2019 12:00:00 A M EDT 1.0 {tablet} active Lisinopril 20 MG eCW1 ( [facility]) 24 HR metoprolol succinate 100 MG Extend ed Release Oral Tablet metoprolol succinate (TOPROL-XL) 100 MG 24 hr tablet metoprolol succinate (TOPROL-XL) 100 MG 24 hr tablet 05/28/2019 12:00:00 AM EST 100 mg Oral ac tive Take 100 mg by mouth daily [facility] Furosemide 20 MG Oral Tablet furosemide (LASIX) 20 MG tablet furosemide (LASIX) 20 MG tablet 05/28/2019 12:00:00 AM EST 20 mg Oral activ e Take 20 mg by mouth daily [facility] Metformin hydrochloride 500 MG Oral Tablet metFORMIN ( GLUCOPHAGE) 500 MG tablet metFORMIN (GLUCOPHAGE) 500 MG tablet 04/18/2019 12:00:00 AM EST 150 0 mg Oral active Take 1,500 mg by mouth [place] 1 TAB IN THE AM, 2 IN THE EVENING [facility] Insurance Providers Payer name Policy type / Coverage type Policy ID Covered constitution party ID Covered constitution party's relationship to adams Policy Adams Plan Information EMEDNY [id number] SP [id number] [facility] MEDICARE [id number] SP 5 [id number] [facility] MEDICARE [id number] Lucie 5 [id number] [facility] MEDICARE [id number] MEDICAID [id number] SP [id number] [facility] [place] [id number] S 50 [id number] ANS-Medicaid [id number] ANSI-Medicare Part B [id number] ANSI-Not a Secondary Insurance [id number] ANSI-Not a Secondary Insurance [id number] ANSI-Medicare Part B [id number] ANSI-Medicaid [id number] ANSI-Medicare Part B [id number] ANSI-Medicaid [id number] ANSI-Not a Secondary Insurance [id number] ANSI-Medicare Part B [id number] ANSI-Not a Secondary Insurance [id number] ANSI-Medicaid [id number] ANSI-Medicaid [id number] ANSI-Not a Secondary Insurance [id number] ANSI-Medicare Part B [id number] ANSI-Medicaid [id number] ANSI-Not a Secondary Insurance [id number] ANSI-Medicare Part B [id number] ANSI-Medicare Part B [id number] ANSI-Not a Secondary Insurance [id number] ANSI-Medicaid [id number] ANSI-Not a Secondary Insurance [id number] ANSI-Medicare Part B [id number] ANSI-Medicaid [id number] ANSI-Not a Secondary Insurance [id number] ANSI-Medicaid [id number] ANSI-Medicare Part B [id number] ANSI-Not a Secondary Insurance [id number] ANSI-Medicaid [id number] ANSI-Medicare Part B [id number] ANSI-Not a Secondary Insurance [id number] ANSI-Medicaid [id number] ANSI-Medicare Part B [id number] ANSI-Medicare Part B [id number] ANSI-Not a Secondary Insurance [id number] ANSI-Medicaid [id number] [place] MED[place]ARE [id number] ANSI-Not a Secondary Insurance [id number] ANSI-Medicaid [id number] ANSI-Medicare Part B [id number] ANSI-Not a Secondary Insurance [id number] ANSI-Medicaid [id number] ANSI-Medicare Part B [id number] ANSI-Medicare Part B [id number] ANSI-Medicaid [id number] ANSI-Not a Secondary Insurance [id number] ANSI-Not a Secondary Insurance [id number] ANSI-Medicare Part B [id number] ANSI-Medicaid [id number] [place] Medicare Commercial [id number] Self [id number] MEDICARE C [id number] S [id number] A MEDICARE [id number] SP [id number] A Problems, Conditions, and Diagnoses Code Display Name Description Problem Type Effective Dates Data Source(s) 48508159 Essential hypertension Essential hypertension Problem 04/25/2020 12:00:00 AM EST MEDENT ([facility], ) E78.2 594465094 Mixed hyperlipidemia Problem 09/13/2019 12:0 0:00 AM EDT eCW1 ([facility]) N18.3 [id number] Chronic renal diseas e, stage 3, moderately decreased glomerular filtration rate (GFR) between 30-59 mL/min/1.73 square meter Problem 09/13/2019 12:00:00 AM EDT eCW1 ([facility]) E78.2 [id number] Mixed hyperlipidemia Problem 09/13/2019 12:0 0:00 AM EDT eCW1 ([facility]) N18.3 577597320 Chronic renal diseas e, stage 3, moderately decreased glomerular filtration rate (GFR) between 30-59 mL/min/1.73 square meter Problem 09/13/2019 12:00:00 AM EDT eCW1 ([facility]) E11.9 Type 2 diabetes mellitus wit hout complication, without long-term current use of insulin Type 2 diabetes mellitus without complic ation, without long-term current use of insulin [id number] 06/02/2019 12:00:00 AM EST [facility] E11.9 Type 2 diabetes mellitus without complic ations Type 2 diabetes mellitus without complic Diagnosis 04/07/2020 10:42:42 AM EST [facility] I48.91 Unspecified atrial fibrillation Unspecified atri al fibrillation Diagnosis 04/07/2020 10:42:42 AM EST [facility] I26.99 Other pulmonary embolism without acute c or pulmonale Other pulmonary embolism without acute c Diagnosis 04/07/2020 10:42:[address] [facility] I42.9 Cardiomyopathy, unspecified Cardiomyopathy, unspecifie d Diagnosis 04/07/2020 10:42:42 AM [facility] Z68.39 Body mass index (BMI) 39.0-39.9, adult B keven mass index (BMI) 39.0-39.9, adult Diagnosis 04/07/2020 10:42:42 AM [facility] E66.01 Morbid (severe) obesity due to excess ca lories Morbid (severe) obesity due to excess ca Diagnosis 04/07/2020 10:42:42 AM [facility] I10 Essential (primary) hypertension Essential (primary) h ypertension Diagnosis 04/07/2020 10:42:42 AM [facility] I49.5 Sick sinus syndrome Sick sinus syndrome Diagnosis 0 09/17/2019 10:53:09 AM EDT [facility] E78.2 Mixed hyperlipidemia Mixed hyperlipidemia Diagnosis 09/03/2019 07:08:41 AM EDT [facility] Surgeries/Procedures Procedure Description Date Indications Data Source(s) POCT AMB EKG POCT AMB EKG Routine 04/07/2020 1:22 PM EST Atrial fibrillation 04/07/2020 06:22:00 PM EST Atrial fibrillati on [facility] Atrial fibrillation Immunization: Flublok Quadrivalent (18 years & older) 0.5mL IM (Influenza) 03/16/2020 12:00:00 AM EST eCW1 ([facility]) PNEUMOCOCCAL POLYSAC VACCINE 23-V 2 />YR SUBQ/IM 03/16 12:00:00 AM EST eCW1 ([facility]) Annual wellness visit, includes a person alized prevention plan of service (pps), subsequent visit 05/28/2019 12:00:00 AM EST eCW 1 ([facility]) RIV4 VACC RECOMBINANT DNA IM 05/28/2019 12:00:00 AM ES T eCW1 ([facility]) Administration of influenza virus vaccine 05/28/2019 1 2:00:00 AM EST eCW1 ([facility]) Results ID Date Data Source [id number] 04/29/2020 03:39:04 PM EST [facility] Name Value Range Interpretation Code Description Data Kaila rce(s) Supporting Document(s) &PDF [facility] KXVPMl4sZiYMYdRm74/IGSyuIQPsp3IpOPnpMRf3ZDcbZDFgS2SjyFtmWQXKYyUAAuvLRNVLPP1PTDTg 0b3 TkWEVnDpZTfMB5PZ8wDFTbqaAhzqB7xO8rED1BCJM+Pv1SXR3dp9UbMOz6DXLza4EcLYxcEAu2L9BczE WzjsKdOjkthPYMUQCcNPYgG4dfhcc1xRXcFLo3Tu7KYlNxy2KnSLBsFOsNyo3xJKUQKHA+l6s6C49sHO 7RAzdxww3dzDVHVAJgrMT+WFCKfFTWXiJ84VVTRG+x BbaQUaJXPoOL7D232KpWBXkb627nRLhylRB3i25URd1WE+C573Q3v1OsuqCsCHLj5yFYipUQsGcBQD7F Jdn+mj1jy1OyIBnmbn5iHCU8267NmB5/fCwmyIioyPPhz3WlC9pxKyGRgeqgdT75N4kSH4KsscJIJkGx cBUDKFtIRr6xQkDjjVjOIIAiBMWWpumT/lWAQVKAf+ [file] AgICAgICAgICAgICAgICAgICAgICAgICAgICAgICAg YEPaKDLpIDUuVNZeRMFmPYKbPZXqPKXtTGZrOSRwZFPsSAFrIFQsLVIuRSDpHSGzNNPyBUYyGFXhEJ9P ICAgICAgICAgICAgICAgICAgICAgICAgICAgICAgICAgICAgICAgICAgICAgICAgICAgICAgICAgICAg ICAgICAgICAgICAgICAgICAgICAgICAgICAgICAgIC QbVIZwUOCaVH3MCVQiEZLtRLBqVSRpHMRhQYOwTRVsJLSzCLBgNJXgGHFtFOTaVVYnZIFwUBFvMWSkMH AgIFOmSIQyZUJiUBVwWMJzNFUkEQWnVDJzHPNzWNIoEXQuTCMuCGIsYTGvPGRoFIFeEI5ZURTgWLBkQN AgICAgICAgICAgICAgICAgICAgICAgICAgICAgICAg ICAgICAgICAgICAgICAgICAgICAgICAgICAgICAgICAgICAgICAgICAgICAgICAgICAgICAgICAgICAg XR8EDDSdAMWwNNIpKJLiDAAsIHRcFYNjZDFkDVJzZYOfTSEvHTRrWRCdDXIvILKxLMHgPDDlNXNkIWZs ICAgICAgICAgICAgICAgICAgICAgICAgICAgICAgIC SrUKCoKIGtVOThQF5TNRArASDrPRQqMQBcKYSgELSvNWCcTZVnTVWlRFMpJNXeFINnVBDqJNQdMQVcNS DnRWNlVHRfRFYpMROtBMQwUNHmGVHlYPJmMNNbJNLgXPIoNJLhHRXiSWIuOGAzTLSqZRXgED6TUPPsTM AgICAgICAgICAgICAgICAgICAgICAgICAgICAgICAg ICAgICAgICAgICAgICAgICAgICAgICAgICAgICAgICAgICAgICAgICAgICAgICAgICAgICAgICAgICAg OWRqOL8LEGWrECXlTKSvIEOkACJjXHDgETGcMRPjEBHvPZSzAAAjDICkWGSmYGUkXXObWMGaZNNdSVYd ICAgICAgICAgICAgICAgICAgICAgICAgICAgICAgIC NgHUOzRCMgYVTjCRUxQB4EZVCiTOKeNMCcIZApYAXdRMGtIZMjRTKgRPJpDHDqNOOsXZZoWBCvCYTqYZ EqRSLoMOUmKBEkTMIfTVNeJXFkBJUeTBOmWSAsBVVeXQGkAKIiAIIeHRVqYOTxJUKiSEGlEWHfQN4BLX AgICAgICAgICAgICAgICAgICAgICAgICAgICAgICAg ICAgICAgICAgICAgICAgICAgICAgICAgICAgICAgICAgICAgICAgICAgICAgICAgICAgICAgICAgICAg TTNfIURuGY0PQG68mFSop2O4ZFInVZ2vcoy/Re4QBJnshwRjuKFwLL1HAnHwVK8hhl7MLfKaAE1uut9P TByIGjPdI3Z9jGHoNXAtRNTDCfTsW68eNBmtNh29OO vuYSGbAnOhOLq6Og0KSrOgM5xfBMWkNoU9EGJeQrXqWInzTM2Mf7CuwJBxWDq+Hw4WSP1xo3JoRQjiUZ LlJZ8knl3GWWvERzEfW0I9vNWeI0R9KTaqUz2PAKBxODGkGVjnEUYNCLxiBL3SND3terU0VW3XtWVsGH YsLOQnpBJcXWl8P51joHGmODywYM4VZLQ+Nemesio+Pg0K BNMrUQJvROEcSfFiCTZEBsTbF73weHAwSXSvLER6PFUaIs9UOTVdE7ZbapOpsUueuwWrBGRhWHIFWV6A PYxfbvCxmCRbgHdsNF06rBtsFT6SVr0JAqHcQA2xru7ErJNkDr4XBBLkIK0XVENiVFEzMXEkNKB7CNFe NmErSEccSDBjTWDfQAH6PZHvMDHvGR6VAdMxUTJvHV ZeSgBpXQRcYTYyxf5DVIUtOGZwCxG2XBOvTYOwSFFsRNgkALDbDOKoOOe3VSHyKGYxJK0ZQlVnEOYfPF NpImaoMRAoRHNiok7GRCWsNTFwSxD6MuFwIVDsSLZnASuhFWPqNNZuFMDwLLYyHMPbSI3KPuFrLALxVP W2ZdcnWTFlETRhio9OZOReIAPfGxcvNJMfKFIlWEGd HFvwNXGqVOB2ZZU0HLRpEFOdST2YPtZkFGQeOKZwNykqVZNtDXXehw7HZBGnSPWrUSY6VURlDXLqZVPk AKgqQAClFMG4YmLjJMPmDGGbSO7OXvUwWQTgKXU6RRNjGDRgKQYuiq4TGJDbOMVeAoT8FVSnRENfRBDa IRzgLBMcSMFhDgeuLYLhEARdBU9STfLhVPWaKLXgAK zrIZPlUEGncl2HEKYxBYOvENgpMTBwYSRxPYLhDSvjJGBtVTE2VPn7AEKvJPFfEZ3VSoViZBuzLVUCSj e5CBqoY0f7GWDuWO3ZD9Jht3AvDFgiGIPSZAdbUH5aogNaPUNzQh6TB8gAGyn6F9AiJ6F6DSk6XRQuFN S4WZrgOkAaJwj9RaXwUbFyEB5vBVNmNBYgQUBtYVTs PFEcNwK0ZIRlARN6KjjdZBH6VNG8RyXeYG7GKq6RBrL9NRF4eVSmUv6XWJwtOiYJLaDzYM3JUXt= Procedure Social History Code Duration Value Status Description Data Source(s ) Alcohol intake 04/07/2020 12:00:00 AM EST Not Currently completed [facility] Smoking 04/07/2020 12:00:00 AM EST Former smoker completed Former smoker [facility] Smoking 03/16/2020 12:00:00 AM EST Former Smoker completed Former Smoker [email or web address] (Formerly [facility]) Smoking 03/16/2020 12:00:00 AM EST Former Smoker completed Former Smoker [email or web address] (Formerly [facility]) Smoking 09/13/2019 12:00:00 AM EDT Former Smoker completed Former Smoker [email or web address] (Formerly [facility]) Smoking 09/13/2019 12:00:00 AM EDT Former Smoker completed Former Smoker [email or web address] (Formerly [facility]) Smoking 09/13/2019 12:00:00 AM EDT Former Smoker completed Former Smoker [email or web address] (Formerly [facility]) Smoking 09/13/2019 12:00:00 AM EDT Former Smoker completed Former Smoker [email or web address] (Formerly [facility]) Vital Signs ID Date Data Source UNK Name Value Range Interpretation Code Description Data Source(s) Body surface area Derived from formula 2.57 m2 2.57 m2 [facility] ([facility]) Body weight 135.173 kg 135.173 kg [facility] ([facility]) [place] body weight 190 [lb_av] 190 [lb_av] [facility] ([facility]) Body mass index (BMI) [Ratio] 38.3 kg/m2 38.3 k g/m2 [facility] ([facility]) Body weight 298.00 [lb_av] 298.00 [lb_av] [facility] ([facility]) Body height 74 [in_i] 74 [in_i] [facility] ([facility]) 6'2" Heart rate 132 /min 132 /min [facility] ([facility]) Diastolic blood pressure 96 mm[Hg] 96 mm[Hg] [facility] ([facility]) Systolic blood pressure 154 mm[Hg] 154 mm[Hg] [facility] Oxygen saturation in Arterial blood by Pulse oximetry 97 % 97 % [facility] Body mass index (BMI) [Ratio] 38.52 kg/m2 38.52 kg/m2 [facility] Body weight 132.45 kg 132.45 kg [facility] Body height 185.4 cm 185.4 cm [facility] Heart rate 88 /min 88 /min [facility] Diastolic blood pressure 70 mm[Hg] 70 mm[Hg] [facility] Systolic blood pressure 150 mm[Hg] 150 mm[Hg] [facility] Diastolic blood pressure 78 mm[Hg] 78 mm[Hg] eCW1 ([facility]) Systolic blood pressure 130 mm[Hg] 130 mm[Hg] e CW1 ([facility]) Body temperature 98.1 [degF] 98.1 [degF] eCW1 ( [facility]) Respiratory rate 20 /min 20 /min eCW1 ([facility]) Heart rate 110 /min 110 /min eCW1 ([facility]) Body mass index (BMI) [Ratio] 37.61 kg/m2 37.61 kg/m2 eCW1 ([facility]) Body height 74 [in_i] 74 [in_i] eCW1 ([facility]) Body weight 293.0 [lb_av] 293.0 [lb_av] eCW1 ([facility]) Diastolic blood pressure 84 mm[Hg] 84 mm[Hg] eCW1 ([facility]) Systolic blood pressure 126 mm[Hg] 126 mm[Hg] e CW1 ([facility]) Body temperature 97.9 [degF] 97.9 [degF] eCW1 ( [facility]) Respiratory rate 18 /min 18 /min eCW1 ([facility]) Heart rate 113 /min 113 /min eCW1 ([facility]) Body mass index (BMI) [Ratio] 37.10 kg/m2 37.10 kg/m2 eCW1 ([facility]) Body height 74 [in_i] 74 [in_i] eCW1 ([facility]) Body weight 289 [lb_av] 289 [lb_av] eCW1 (On license of [facility]) Diastolic blood pressure 86 mm[Hg] 86 mm[Hg] eCW1 ([facility]) Systolic blood pressure 148 mm[Hg] 148 mm[Hg] e CW1 ([facility]) Body temperature 98 [degF] 98 [degF] eCW1 ([facility]) Respiratory rate 18 /min 18 /min eCW1 ([facility]) Heart rate 72 /min 72 /min eCW1 ([facility]) Body mass index (BMI) [Ratio] 38.13 kg/m2 38.13 kg/m2 eCW1 ([facility]) Body height 74 [in_us] 74 [in_us] eCW1 ([facility]) Body weight Measured 297 [lb_av] 297 [lb_av] eC W1 ([facility]) Patient Treatment Plan of Care Planned Activity Planned Date Details Description Data Source (s) atorvastatin 20 MG Oral Tablet 03/18/2020 12:00:00 AM EST [facility] Lisinopril 20 MG Oral Tablet 02/21/2020 12:00:00 AM EDT [facility] apixaban 5 MG Oral Tablet [Eliquis] 12/21/2019 12:00:00 AM EDT [facility] Lisinopril 40 MG Oral Tablet 09/18/2019 12:00:00 AM EDT [facility] Lisinopril 20 MG Oral Tablet 07/06/2019 12:00:00 AM EDT eCW1 ([facility]ly [facility]) Lisinopril 20 MG Oral Tablet 07/06/2019 12:00:00 AM EDT eCW1 ([facility]) Lisinopril 20 MG Oral Tablet 07/06/2019 12:00:00 AM EDT eCW1 ([facility]) Lisinopril 20 MG Oral Tablet 07/06/2019 12:00:00 AM EDT eCW1 ([facility]) Lisinopril 20 MG Oral Tablet 07/06/2019 12:00:00 AM EDT eCW1 ([facility]) Lisinopril 20 MG Oral Tablet 07/06/2019 12:00:00 AM EDT eCW1 ([facility]) Lisinopril 20 MG Oral Tablet 07/06/2019 12:00:00 AM EDT eCW1 ([facility]) 24 HR metoprolol succinate 100 MG Extended Release Ora l Tablet 05/28/2019 12:00:00 AM [facility] Furosemide 20 MG Oral Tablet 05/28/2019 12:00:00 AM [facility] Metformin hydrochloride 500 MG Oral Tablet 04/18/2019 12:00:00 AM E [facility]
--- NOTE | 2020-06-12 13:16 | REP ---
INDICATION: constipation. COMPARISON: Portable chest 12/24/2018. TECHNIQUE: PA chest with two-view abdomen FINDINGS: PA chest: The lung troy are well inflated without pleural effusion, lateral pleural thickening, apical scarring or pneumothorax. No acute infiltrate parenchymal masses. Heart size not grossly enlarged. No vascular redistribution or pulmonary edema. The aorta is normal for age. There is no widening of the mediastinum. Hilar contour symmetric and unchanged. Visualized bones with some degenerative changes in the spine and shoulders without acute finding. No free air under the diaphragm. Flat and upright abdomen: Calcifications overlying the right renal fossa in the region of the renal pelvis up to 15 mm and another more inferiorly seen only on the supine view and about 8 mm this could be in the kidney or elsewhere in the abdomen. However, there are no dilated bowel loops, visible masses or air-fluid levels. Most small bowel loops are fluid filled and the colon also shows a paucity of gas. I do not see abnormal colonic distention with stool. There are degenerative changes throughout the lumbar spine with marginal osteophytes and some posterior facet arthropathy evident, hip arthritic changes and sclerosis acetabular roof with small spurs. SI joints show some sclerosis. Sacral ala, foramina, iliac wings and femoral heads intact with pubic rami and symphysis pubis visible also intact. IMPRESSION: 1. Non-specific gas pattern without evidence of obstruction, constipation or mass. Mostly fluid-filled small-bowel loops and colon. This may reflect some gastroenteritis or ileus. No perforation or free air. 2. Calcifications overlying the renal fossa the which could be within the renal pelvis and conglomerate 15 mm size differential diagnostic considerations include dependent gallstones. Smaller calcifications seen lower in the abdomen in the supine view on the right side may also suggest calcification outside of the kidney or lower pole kidney. I do note that calcified gallstones are seen on the CT angio chest on 10/15/2016. 3. No acute cardiopulmonary changes. <Electronically signed by Raul Samuel > 06/12/20 [id number]
[2020-06-12 14:29] LABS: HEMATOCRIT 39.5 % (42.0-52.0); MEAN CORPUSCULAR HEMOGLOBIN 28.5 pg (27.0-33.0); MEAN CORPUSCULAR HGB CONC 32.9 g/dl (32.0-36.5); MEAN CORPUSCULAR VOLUME 86.6 fl (80.0-96.0); PLATELET COUNT, AUTOMATED 179 10^3/uL (150-450); RED BLOOD COUNT 4.56 10^6/uL (4.30-6.10)
[2020-06-12 14:46] LABS: CALCIUM LEVEL 9.1 MG/DL (8.8-10.2); CREATININE FOR GFR 1.87 MG/DL (0.70-1.30); GLOMERULAR FILTRATION RATE 38.1 (>42); POTASSIUM SERUM 4.2 MEQ/L (3.5-5.1)
[2020-06-12] MEDS ORDERED: FLOM0.4C39 PO (15:51)
[2020-06-12] MEDS ORDERED: CIPR-249 PO (15:51)
[2020-06-12 16:11] VITALS: BP 134/74
--- NOTE | 2020-06-13 07:05 | ED PDOC ---
Post-Departure Follow-Up radiology rpeort faxed to Sakina Eaton MD Jun 13, 2020 07:05
== END 2020-06-12 16:13 | disposition home or self-care (01) ==
LOC: M ED 12:13
DX: N39.0 Urinary tract infection, site not specified (principal); E11.65 Type 2 diabetes mellitus with hyperglycemia; I48.91 Unspecified atrial fibrillation; I10 Essential (primary) hypertension; K80.20 Calculus of gallbladder without cholecystitis without obstruction; Z79.01 Long term (current) use of anticoagulants; Z79.84 Long term (current) use of oral hypoglycemic drugs; Z79.899 Other long term (current) drug therapy

== ENCOUNTER → 2020-08-10 | Outpatient (REF) | payer MEDICARE, MEDICAID ==
[~2020-08-10] MED LIST changes: -AMLO1TAB25; +AMLO1TAB25 PO; +ATOR1TAB21 PO; +CIPR-249 PO; +FLOM0.4C39 PO; -FURO20TA2; +FURO20TA2 PO; +LISI20TA33 PO; -LISI40TA4; +LISI40TA4 PO; -METO1TAB33; +METO1TAB33 PO
[2020-08-10 10:43] LABS: HEMATOCRIT 42.2 % (42.0-52.0); HEMOGLOBIN 13.3 g/dl (13.5-17.5); MEAN CORPUSCULAR HEMOGLOBIN 27.9 pg (27.0-33.0); MEAN CORPUSCULAR HGB CONC 31.5 g/dl (32.0-36.5); MEAN CORPUSCULAR VOLUME 88.7 fl (80.0-96.0); PLATELET COUNT, AUTOMATED 170 10^3/uL (150-450); RED BLOOD COUNT 4.76 10^6/uL (4.30-6.10); WHITE BLOOD COUNT 5.4 10^3/uL (4.0-10.0)
[2020-08-10 14:01] LABS: ALT/SGPT 32 U/L (12-78); BLOOD UREA NITROGEN 19 MG/DL (7-18); CALCIUM LEVEL 9.2 MG/DL (8.8-10.2); CARBON DIOXIDE LEVEL 28 MEQ/L (21-32); CHLORIDE LEVEL 107 MEQ/L (98-107); CHOLESTEROL LEVEL 128 MG/DL (<200); CREATININE FOR GFR 1.13 MG/DL (0.70-1.30); GLOMERULAR FILTRATION RATE > 60.0 (>42); GLUCOSE, FASTING 165 MG/DL (70-100); HDL CHOLESTEROL 50 MG/DL (>40); LDL CHOLESTEROL 63 MG/DL (<100); NON-HDL-C 78 MG/DL; POTASSIUM SERUM 4.5 MEQ/L (3.5-5.1); SODIUM LEVEL 138 MEQ/L (136-145); TOTAL PROTEIN 7.6 GM/DL (6.4-8.2); TRIGLYCERIDES LEVEL 76 MG/DL (<150)
[2020-08-10 17:43] LABS: HEMOGLOBIN A1c 7.1 %
== END ==
LOC: M SFHCPLAZ 08:13
PROVIDERS: ATTEND Nurse Practitioner Adult Health
DX: I48.20 Chronic atrial fibrillation, unspecified (principal); E11.40 Type 2 diabetes mellitus with diabetic neuropathy, unspecified; E78.2 Mixed hyperlipidemia
CPT/HCPCS: 36415; 80053; 80061; 83036; 84443; 85027; G0463

== ENCOUNTER → 2021-01-12 | Outpatient (CLI) | payer MEDICARE, MEDICAID ==
--- NOTE | 2021-01-12 16:07 | REP ---
INDICATION: UNSP COMP OF CARDIAC AND VASCULAR PROSTH DEV/GRFT,. COMPARISON: 06/12/2020 TECHNIQUE: PA and lateral FINDINGS: Since the last examination a dual chamber bipolar pacemaker device has been placed. Leads are appropriate and contiguous. Mild fibrotic changes are again seen with basal predominance status quo. No acute patchy parenchymal opacities or pleural effusions have developed. The osseous structures are stable and intact. IMPRESSION: There is no acute cardiopulmonary disease. <Electronically signed by Jonatan Lim > 01/12/21 [id number]
== END ==
LOC: M PLAIMG 14:02
PROVIDERS: ATTEND Nurse Practitioner Family
DX: T82.9XXA Unspecified complication of cardiac and vascular prosthetic device, implant and graft, initial encounter (principal); Y83.1 Surgical operation with implant of artificial internal device as the cause of abnormal reaction of the patient, or of later complication, without mention of misadventure at the time of the procedure

== ENCOUNTER → 2021-02-12 | Outpatient (CLI) | payer MEDICARE, MEDICAID ==
[2021-02-12 10:02] LABS: HEMATOCRIT 40.2 % (42.0-52.0); HEMOGLOBIN 13.3 g/dl (13.5-17.5); MEAN CORPUSCULAR HEMOGLOBIN 28.9 pg (27.0-33.0); MEAN CORPUSCULAR HGB CONC 33.1 g/dl (32.0-36.5); MEAN CORPUSCULAR VOLUME 87.2 fl (80.0-96.0); PLATELET COUNT, AUTOMATED 170 10^3/uL (150-450); RED BLOOD COUNT 4.61 10^6/uL (4.30-6.10); WHITE BLOOD COUNT 6.2 10^3/uL (4.0-10.0)
[2021-02-12 10:50] LABS: ALBUMIN 3.6 GM/DL (3.2-5.2); BILIRUBIN,TOTAL 0.7 MG/DL (0.2-1.0); CALCIUM LEVEL 8.9 MG/DL (8.8-10.2); CHOLESTEROL RISK RATIO 2.659 (<5); CREATININE FOR GFR 1.37 MG/DL (0.70-1.30); GLOMERULAR FILTRATION RATE 54.5 (>42); POTASSIUM SERUM 4.3 MEQ/L (3.5-5.1); THYROID STIMULATING HORMONE 7.13 uIU/ML (0.358-3.740); TOTAL PROTEIN 7.5 GM/DL (6.4-8.2)
[2021-02-12 11:51] LABS: HEMOGLOBIN A1c 7.4 %
== END ==
LOC: M PLALAB 08:23
PROVIDERS: ATTEND Nurse Practitioner Adult Health
DX: I48.20 Chronic atrial fibrillation, unspecified (principal); E11.40 Type 2 diabetes mellitus with diabetic neuropathy, unspecified; E78.2 Mixed hyperlipidemia; Z23 Encounter for immunization
CPT/HCPCS: 36415; 80053; 80061; 83036; 84443; 85027; 90682; G0008

== ENCOUNTER → 2021-10-01 | Outpatient (CLI) | payer MEDICARE, MEDICAID ==
[2021-10-01 14:25] LABS: BASO % 0.7 % (0.0-1.0); EOS # 0.1 10^3/uL (0.0-0.5); EOS % 2.1 % (0.0-3.0); HEMATOCRIT 41.7 % (42.0-52.0); HEMOGLOBIN 13.6 g/dl (13.5-17.5); LYMPH # 1.6 10^3/uL (1.5-5.0); LYMPH % 27.6 % (24.0-44.0); MEAN CORPUSCULAR HEMOGLOBIN 29.1 pg (27.0-33.0); MEAN CORPUSCULAR HGB CONC 32.6 g/dl (32.0-36.5); MEAN CORPUSCULAR VOLUME 89.3 fl (80.0-96.0); MONO # 0.5 10^3/uL (0.0-0.8); MONO % 9.5 % (2.0-8.0); NEUTROPHILS # 3.4 10^3/uL (1.5-8.5); NEUTROPHILS % 59.7 % (36.0-66.0); PLATELET COUNT, AUTOMATED 163 10^3/uL (150-450); RED BLOOD COUNT 4.67 10^6/uL (4.30-6.10); WHITE BLOOD COUNT 5.7 10^3/uL (4.0-10.0)
[2021-10-01 15:04] LABS: ALBUMIN 3.7 GM/DL (3.2-5.2); CALCIUM LEVEL 9.1 MG/DL (8.8-10.2); CHOLESTEROL RISK RATIO 2.488 (<5); CREATININE FOR GFR 1.45 MG/DL (0.70-1.30); GLOMERULAR FILTRATION RATE 50.9 (>42); POTASSIUM SERUM 4.4 MEQ/L (3.5-5.1); THYROID STIMULATING HORMONE 5.34 uIU/ML (0.358-3.740); TOTAL PROTEIN 6.8 GM/DL (6.4-8.2)
== END ==
LOC: M PLALAB 09:13
PROVIDERS: ATTEND Nurse Practitioner Adult Health
DX: E11.40 Type 2 diabetes mellitus with diabetic neuropathy, unspecified (principal); I48.20 Chronic atrial fibrillation, unspecified; E78.2 Mixed hyperlipidemia; E03.8 Other specified hypothyroidism

== ENCOUNTER 2021-11-13 23:06 | Inpatient (IN) | payer MEDICAID, MEDICARE ==
[~2021-11-13] VITALS: Ht 188 cm; Wt 131.8 kg
[2021-11-13] MEDS ORDERED: ACETAMINOPHEN TAB 650MG DOSE (2X325MG) PO ONE (23:40)
[2021-11-14 00:17] LABS: BASO % 0.5 % (0.0-1.0); EOS # 0.1 10^3/uL (0.0-0.5); EOS % 1.2 % (0.0-3.0); HEMATOCRIT 35.7 % (42.0-52.0); HEMOGLOBIN 11.6 g/dl (13.5-17.5); LYMPH # 1.1 10^3/uL (1.5-5.0); LYMPH % 16.9 % (24.0-44.0); MEAN CORPUSCULAR HEMOGLOBIN 28.4 pg (27.0-33.0); MEAN CORPUSCULAR HGB CONC 32.5 g/dl (32.0-36.5); MEAN CORPUSCULAR VOLUME 87.3 fl (80.0-96.0); NEUTROPHILS # 4.2 10^3/uL (1.5-8.5); NEUTROPHILS % 64.8 % (36.0-66.0); PLATELET COUNT, AUTOMATED 168 10^3/uL (150-450); RED BLOOD COUNT 4.09 10^6/uL (4.30-6.10); WHITE BLOOD COUNT 6.5 10^3/uL (4.0-10.0)
[2021-11-14 00:26] LABS: INR 1.31; PROTHROMBIN TIME 16.8 SECONDS (12.7-14.5)
[2021-11-14 00:27] LABS: PARTIAL THROMBOPLASTIN TIME 46.9 SECONDS (25.9-37.0)
[2021-11-14] MEDS ORDERED: cefTRIAXone SOD 2 GM in D5W MINI-BAG PLUS 50 ML IV ONE (00:35)
[2021-11-14 00:38] LABS: ALBUMIN 3.3 GM/DL (3.2-5.2); ALT/SGPT 25 U/L (12-78); BILIRUBIN,DIRECT 0.3 MG/DL (0.0-0.2); BILIRUBIN,TOTAL 0.9 MG/DL (0.2-1.0); BLOOD UREA NITROGEN 28 MG/DL (7-18); CALCIUM LEVEL 8.8 MG/DL (8.8-10.2); CARBON DIOXIDE LEVEL 24 MEQ/L (21-32); CHLORIDE LEVEL 105 MEQ/L (98-107); CREATININE FOR GFR 1.24 MG/DL (0.70-1.30); GLOMERULAR FILTRATION RATE > 60.0 (>42); GLUCOSE, FASTING 106 MG/DL (70-100); POTASSIUM SERUM 3.8 MEQ/L (3.5-5.1); SODIUM LEVEL 137 MEQ/L (136-145)
[2021-11-14 00:40] LABS: CK-MB VALUE MASS 1.3 NG/ML (<3.6); MB/CK RELATIVE INDEX 1.06 (< OR =4)
[2021-11-14] MEDS ORDERED: GLUCAGON INJ 1MG VIAL SC PRN (02:40)
[2021-11-14] MEDS ORDERED: GLUCOSE 4GM CHEW TABLET PO PRN (02:40)
[2021-11-14] MEDS ORDERED: DEXTROSE 50% 50 ML SYRINGE IV PRN (02:40)
[2021-11-14] MEDS ORDERED: ACETAMINOPHEN TAB 650MG DOSE (2X325MG) PO PRN (02:40)
[2021-11-14] MEDS: AZITHROMYCIN INJ 500 MG, VIAL MATE ADAPTER 1 EACH in NS 250 ML IV SCH (03:00)
[2021-11-14] MEDS ORDERED: GLIP5TAB20 PO (03:07)
[2021-11-14] MEDS ORDERED: METF-838 PO ×2 (03:07→05:32)
[2021-11-14] MEDS ORDERED: LEVO25TA5 PO (03:07)
[2021-11-14] MEDS ORDERED: METO200T28 PO (03:07)
[2021-11-14] MEDS ORDERED: ELIQ5TAB PO (03:12)
[2021-11-14 04:20] LABS: APPEARANCE, URINE CLOUDY (CLEAR); BACTERIA, URINE AUTO NEGATIVE (NEGATIVE); BILIRUBIN, URINE AUTO NEGATIVE (NEGATIVE); BLOOD, URINE BLOOD NEGATIVE (NEGATIVE); COLOR, URINE YELLOW (YELLOW); GLUCOSE, URINE (UA) AUTO 1+ mg/dL (NEGATIVE); KETONE, URINE AUTO NEGATIVE (NEGATIVE); LEUKOCYTE ESTERASE, URINE AUTO NEGATIVE (NEGATIVE); MUCUS, URINE SMALL (NEGATIVE); NITRITE, URINE AUTO NEGATIVE (NEGATIVE); PROTEIN, URINE AUTO NEGATIVE (NEGATIVE); RBC, URINE AUTO 0 /HPF (0-3); SPECIFIC GRAVITY URINE AUTO 1.023 (1.002-1.035); SQUAMOUS EPITHELIAL CELL UR AU 0 /HPF (0-6); URIC ACID CRYSTALS SMALL; WBC, URINE AUTO 1 /HPF (0-3)
[2021-11-14 04:54] LABS: TOTAL PROTEIN,RANDOM URINE 34.1 MG/DL (0.0-12.0)
[2021-11-14] MEDS ORDERED: FLOM0.4C39 PO (05:32)
[2021-11-14] MEDS ORDERED: HOME MED LIST COMPLETE! XX SCH (05:40)
[2021-11-14] MEDS: INSULIN LISPRO (NovoLOG) PER UNIT SC SCH ×3 (07:30→17:11)
[2021-11-14 07:35] LABS: BLOOD UREA NITROGEN 25 MG/DL (7-18); CALCIUM LEVEL 8.8 MG/DL (8.8-10.2); CARBON DIOXIDE LEVEL 25 MEQ/L (21-32); CHLORIDE LEVEL 108 MEQ/L (98-107); CREATININE FOR GFR 0.99 MG/DL (0.70-1.30); GLOMERULAR FILTRATION RATE > 60.0 (>42); GLUCOSE, FASTING 98 MG/DL (70-100); POTASSIUM SERUM 3.6 MEQ/L (3.5-5.1); SODIUM LEVEL 138 MEQ/L (136-145)
[2021-11-14 08:40] VITALS: BP 129/77
[2021-11-14] MEDS: TAMSULOSIN 0.4 MG CAP PO SCH (11:59)
[2021-11-14] MEDS: APIXABAN 5 MG TAB (ELIQUIS) PO SCH ×2 (11:59→21:42)
[2021-11-14] MEDS: ATORVASTATIN 20 MG TAB PO SCH (12:00)
[2021-11-14] MEDS: FUROSEMIDE 20 MG TAB PO SCH (12:00)
[2021-11-14] MEDS: METOPROLOL SUCC (TopROL XL) 100MG *XL* TAB PO SCH (12:01)
[2021-11-14 14:00] VITALS: BP 116/62
[2021-11-14] MEDS: LEVOTHYROXINE 12.5MCG PER 1/2 TAB (0.0125MG) PO SCH (15:06)
[2021-11-14] MEDS ORDERED: cefTRIAXone SOD 1 GM in D5W MINI-BAG PLUS 50 ML IV SCH (21:00)
[2021-11-14] MEDS ORDERED: INSULIN LISPRO (NovoLOG) PER UNIT SC SCH (21:00)
[2021-11-14 22:00] VITALS: BP 112/68
[2021-11-15] MEDS: AZITHROMYCIN INJ 500 MG, VIAL MATE ADAPTER 1 EACH in NS 250 ML IV SCH (03:03)
[2021-11-15 05:43] VITALS: BP 114/68
[2021-11-15] MEDS: LEVOTHYROXINE 12.5MCG PER 1/2 TAB (0.0125MG) PO SCH (05:47)
[2021-11-15] MEDS ORDERED: MOXI1TAB PO (08:10)
[2021-11-15 08:53] VITALS: BP 120/76
[2021-11-15] MEDS: METOPROLOL SUCC (TopROL XL) 100MG *XL* TAB PO SCH (08:53)
[2021-11-15] MEDS: TAMSULOSIN 0.4 MG CAP PO SCH (08:54)
[2021-11-15] MEDS: FUROSEMIDE 20 MG TAB PO SCH (08:55)
[2021-11-15] MEDS: APIXABAN 5 MG TAB (ELIQUIS) PO SCH (08:56)
[2021-11-15] MEDS: ATORVASTATIN 20 MG TAB PO SCH (08:56)
[2021-11-15] MEDS: INSULIN LISPRO (NovoLOG) PER UNIT SC SCH (08:56)
[2021-11-15 09:01] LABS: BASO % 0.6 % (0.0-1.0); EOS # 0.2 10^3/uL (0.0-0.5); EOS % 3.2 % (0.0-3.0); HEMOGLOBIN 11.1 g/dl (13.5-17.5); LYMPH # 1.3 10^3/uL (1.5-5.0); LYMPH % 24.9 % (24.0-44.0); MEAN CORPUSCULAR HEMOGLOBIN 28.7 pg (27.0-33.0); MEAN CORPUSCULAR HGB CONC 32.6 g/dl (32.0-36.5); MEAN CORPUSCULAR VOLUME 87.9 fl (80.0-96.0); MONO # 0.8 10^3/uL (0.0-0.8); MONO % 15.8 % (2.0-8.0); NEUTROPHILS # 2.9 10^3/uL (1.5-8.5); NEUTROPHILS % 55.3 % (36.0-66.0); PLATELET COUNT, AUTOMATED 180 10^3/uL (150-450); RED BLOOD COUNT 3.87 10^6/uL (4.30-6.10); WHITE BLOOD COUNT 5.3 10^3/uL (4.0-10.0)
[2021-11-15 09:43] LABS: BLOOD UREA NITROGEN 22 MG/DL (7-18); CALCIUM LEVEL 8.8 MG/DL (8.8-10.2); CARBON DIOXIDE LEVEL 25 MEQ/L (21-32); CHLORIDE LEVEL 107 MEQ/L (98-107); CREATININE FOR GFR 1.11 MG/DL (0.70-1.30); GLOMERULAR FILTRATION RATE > 60.0 (>42); GLUCOSE, FASTING 122 MG/DL (70-100); POTASSIUM SERUM 3.9 MEQ/L (3.5-5.1); SODIUM LEVEL 140 MEQ/L (136-145)
[2021-11-16 15:10] LABS: BODY FLUID CULTURE Not indicated. (.); LEGIONELLA ANTIGEN URINE Negative (Negative); ORGANISM ID Not indicated. (.); SPECIMEN SOURCE Urine (.); URINE STREP PNEUMONIAE ANTIGEN Negative (Negative)
== END 2021-11-15 11:22 | disposition home or self-care (01) | DRG 195 ==
LOC: M ED 23:06 → M ED INP 11-14 02:37 → M MSPAV 11-14 07:56
PROVIDERS: ADMIT Internal Medicine; ATTEND General Practice
DX: J18.9 Pneumonia, unspecified organism (principal); I48.91 Unspecified atrial fibrillation; E11.9 Type 2 diabetes mellitus without complications; I10 Essential (primary) hypertension; N40.0 Benign prostatic hyperplasia without lower urinary tract symptoms; Z95.0 Presence of cardiac pacemaker; Z20.822 Contact with and (suspected) exposure to COVID-19; Z79.84 Long term (current) use of oral hypoglycemic drugs; Z79.2 Long term (current) use of antibiotics; Z79.899 Other long term (current) drug therapy

== ENCOUNTER → 2022-05-01 | Outpatient (CLI) | payer MEDICARE ==
[~2022-05-01] MED LIST changes: +GLIP5TAB20 PO; +LEVO25TA5 PO; +METF-838 PO; +METO200T28 PO; +MOXI1TAB PO
== END ==
LOC: M PLALAB 08:38
PROVIDERS: ATTEND Nurse Practitioner Family
DX: I48.91 Unspecified atrial fibrillation (principal)

== ENCOUNTER → 2022-05-01 | Outpatient (CLI) | payer MEDICARE ==
[2022-05-01 11:25] LABS: ALBUMIN 3.9 G/DL (3.2-5.2); CALCIUM LEVEL 9.7 MG/DL (8.3-10.6); CREATININE FOR GFR 1.29 MG/DL (0.70-1.30); GLOMERULAR FILTRATION RATE 58.1 (>42); POTASSIUM SERUM 4.6 MMOL/L (3.5-5.1); TOTAL PROTEIN 7.7 G/DL (5.7-8.2)
[2022-05-01 11:28] LABS: THYROID STIMULATING HORMONE 6.644 uIU/ML (0.55-4.78)
== END ==
LOC: M PLALAB 08:35
PROVIDERS: ATTEND Nurse Practitioner Adult Health
DX: E03.8 Other specified hypothyroidism (principal); E11.40 Type 2 diabetes mellitus with diabetic neuropathy, unspecified; I48.20 Chronic atrial fibrillation, unspecified

== ENCOUNTER → 2022-08-06 | Outpatient (CLI) | payer MEDICARE, MEDICAID ==
[2022-08-06 13:32] LABS: HEMATOCRIT 40.8 % (42.0-52.0); HEMOGLOBIN 13.1 g/dl (13.5-17.5); MEAN CORPUSCULAR HEMOGLOBIN 28.4 pg (27.0-33.0); MEAN CORPUSCULAR HGB CONC 32.1 g/dl (32.0-36.5); MEAN CORPUSCULAR VOLUME 88.3 fl (80.0-96.0); PLATELET COUNT, AUTOMATED 164 10^3/uL (150-450); RED BLOOD COUNT 4.62 10^6/uL (4.30-6.10); WHITE BLOOD COUNT 6.5 10^3/uL (4.0-10.0)
[2022-08-06 13:41] LABS: THYROID STIMULATING HORMONE 5.513 uIU/ML (0.55-4.78)
[2022-08-06 13:44] LABS: ALBUMIN 3.8 G/DL (3.2-5.2); ALKALINE PHOSPHATASE 59 U/L (46-116); ALT/SGPT 24 U/L (7.0-40); AST/SGOT 21 U/L (<34); BILIRUBIN,TOTAL 1.1 MG/DL (0.3-1.2); BLOOD UREA NITROGEN 25 MG/DL (9-23); CALCIUM LEVEL 9.2 MG/DL (8.3-10.6); CARBON DIOXIDE LEVEL 28 MMOL/L (20-31); CHLORIDE LEVEL 106 MMOL/L (98-107); CHOLESTEROL LEVEL 118 MG/DL (<200); CHOLESTEROL RISK RATIO 3.53 (<5); CREATININE FOR GFR 1.21 MG/DL (0.70-1.30); GLOMERULAR FILTRATION RATE > 60.0 (>42); GLUCOSE, FASTING 143 MG/DL (74-106); HDL CHOLESTEROL 33.4 MG/DL (>40); LDL CHOLESTEROL 63.8 MG/DL (<100); MAGNESIUM LEVEL 1.6 MG/DL (1.8-2.4); NON-HDL-C 84.6 MG/DL; SODIUM LEVEL 141 MMOL/L (136-145); TOTAL PROTEIN 6.9 G/DL (5.7-8.2); TRIGLYCERIDES LEVEL 104 MG/DL (<150)
[2022-08-06 13:51] LABS: HEMOGLOBIN A1c 8.4 % (4.0-6.0)
== END ==
LOC: M PLALAB 10:44
PROVIDERS: ATTEND Nurse Practitioner Adult Health
DX: I48.20 Chronic atrial fibrillation, unspecified (principal); E78.2 Mixed hyperlipidemia; E03.8 Other specified hypothyroidism; Z79.899 Other long term (current) drug therapy

== ENCOUNTER → 2023-02-03 | Outpatient (CLI) | payer MEDICAID, MEDICARE | LOC: M PLALAB 10:30 | PROVIDERS: ATTEND Nurse Practitioner Family | DX: I48.20 Chronic atrial fibrillation, unspecified (principal) ==

== ENCOUNTER → 2023-02-03 | Outpatient (CLI) | payer MEDICAID, MEDICARE ==
[2023-02-03 13:44] LABS: THYROID STIMULATING HORMONE 5.942 uIU/ML (0.55-4.78)
[2023-02-03 13:55] LABS: HEMOGLOBIN A1c 6.7 % (4.0-6.0)
[2023-02-03 13:56] LABS: HEMATOCRIT 45.7 % (42.0-52.0); MEAN CORPUSCULAR HGB CONC 32.8 g/dl (32.0-36.5); MEAN CORPUSCULAR VOLUME 88.4 fl (80.0-96.0); PLATELET COUNT, AUTOMATED 168 10^3/uL (150-450); RED BLOOD COUNT 5.17 10^6/uL (4.30-6.10); WHITE BLOOD COUNT 6.4 10^3/uL (4.0-10.0)
[2023-02-03 14:03] LABS: ALKALINE PHOSPHATASE 62 U/L (46-116); ALT/SGPT 37 U/L (7.0-40); AST/SGOT 19 U/L (<34); BILIRUBIN,TOTAL 1.1 MG/DL (0.3-1.2); BLOOD UREA NITROGEN 26 MG/DL (9-23); CALCIUM LEVEL 9.7 MG/DL (8.3-10.6); CARBON DIOXIDE LEVEL 28 MMOL/L (20-31); CHLORIDE LEVEL 105 MMOL/L (98-107); CHOLESTEROL LEVEL 119 MG/DL (<200); CHOLESTEROL RISK RATIO 3.27 (<5); CREATININE FOR GFR 1.17 MG/DL (0.70-1.30); GLOMERULAR FILTRATION RATE > 60.0 (>42); GLUCOSE, FASTING 211 MG/DL (74-106); HDL CHOLESTEROL 36.3 MG/DL (>40); LDL CHOLESTEROL 58.1 MG/DL (<100); NON-HDL-C 82.7 MG/DL; POTASSIUM SERUM 4.2 MMOL/L (3.5-5.1); SODIUM LEVEL 138 MMOL/L (136-145); TOTAL PROTEIN 7.5 G/DL (5.7-8.2); TRIGLYCERIDES LEVEL 123 MG/DL (<150)
== END ==
LOC: M PLALAB 10:28
PROVIDERS: ATTEND Nurse Practitioner Adult Health
DX: I48.20 Chronic atrial fibrillation, unspecified (principal); E78.2 Mixed hyperlipidemia; E03.8 Other specified hypothyroidism; E11.40 Type 2 diabetes mellitus with diabetic neuropathy, unspecified

== ENCOUNTER → 2023-09-08 | Outpatient (CLI) | payer MEDICARE, MEDICAID ==
[~2023-09-08] MED LIST changes: +METO200T15 PO; -METO200T28 PO
[2023-09-08 10:04] LABS: HEMATOCRIT 45.5 % (42.0-52.0); HEMOGLOBIN 14.6 g/dl (13.5-17.5); MEAN CORPUSCULAR HEMOGLOBIN 28.5 pg (27.0-33.0); MEAN CORPUSCULAR HGB CONC 32.1 g/dl (32.0-36.5); MEAN CORPUSCULAR VOLUME 88.9 fl (80.0-96.0); PLATELET COUNT, AUTOMATED 173 10^3/uL (150-450); RED BLOOD COUNT 5.12 10^6/uL (4.30-6.10); WHITE BLOOD COUNT 6.3 10^3/uL (4.0-10.0)
[2023-09-08 10:14] LABS: ALBUMIN 3.9 G/DL (3.2-5.2); BILIRUBIN,TOTAL 0.9 MG/DL (0.3-1.2); CALCIUM LEVEL 9.6 MG/DL (8.3-10.6); CHOLESTEROL RISK RATIO 3.36 (<5); CREATININE FOR GFR 1.28 MG/DL (0.70-1.30); GLOMERULAR FILTRATION RATE 58.5 (>42); LDL CHOLESTEROL 60.8 MG/DL (<100); POTASSIUM SERUM 4.2 MMOL/L (3.5-5.1); TOTAL PROTEIN 7.3 G/DL (5.7-8.2)
[2023-09-08 10:17] LABS: FERRITIN 139.3 NG/ML (10.5-307.3)
[2023-09-08 10:18] LABS: THYROID STIMULATING HORMONE 5.443 uIU/ML (0.55-4.78)
[2023-09-08 10:22] LABS: HEMOGLOBIN A1c 8.4 % (4.0-6.0)
== END ==
LOC: M PLALAB 07:46
PROVIDERS: ATTEND Nurse Practitioner Adult Health
DX: I48.20 Chronic atrial fibrillation, unspecified (principal); E03.8 Other specified hypothyroidism; E78.2 Mixed hyperlipidemia; E11.40 Type 2 diabetes mellitus with diabetic neuropathy, unspecified

== ENCOUNTER → 2024-02-19 | Outpatient (CLI) | payer MEDICARE, MEDICAID ==
[2024-02-19 13:26] LABS: ALBUMIN 3.9 G/DL (3.2-5.2); BILIRUBIN,TOTAL 1.2 MG/DL (0.3-1.2); CALCIUM LEVEL 9.7 MG/DL (8.3-10.6); CHOLESTEROL RISK RATIO 3.77 (<5); CREATININE FOR GFR 1.33 MG/DL (0.70-1.30); HDL CHOLESTEROL 35.8 MG/DL (>40); LDL CHOLESTEROL 72.4 MG/DL (<100); MAGNESIUM LEVEL 2.1 MG/DL (1.8-2.4); NON-HDL-C 99.2 MG/DL; POTASSIUM SERUM 4.9 MMOL/L (3.5-5.1); TOTAL PROTEIN 7.5 G/DL (5.7-8.2)
[2024-02-19 13:29] LABS: FERRITIN 156.5 NG/ML (10.5-307.3); THYROID STIMULATING HORMONE 4.229 uIU/ML (0.55-4.78)
[2024-02-19 13:40] LABS: HEMATOCRIT 42.3 % (42.0-52.0); MEAN CORPUSCULAR HEMOGLOBIN 28.8 pg (27.0-33.0); MEAN CORPUSCULAR HGB CONC 33.1 g/dl (32.0-36.5); PLATELET COUNT, AUTOMATED 169 10^3/uL (150-450); RED BLOOD COUNT 4.86 10^6/uL (4.30-6.10); WHITE BLOOD COUNT 6.7 10^3/uL (4.0-10.0)
[2024-02-19 14:02] LABS: HEMOGLOBIN A1c 10.5 % (4.0-6.0)
== END ==
LOC: M PLALAB 09:39
PROVIDERS: ATTEND Nurse Practitioner Adult Health
DX: I48.20 Chronic atrial fibrillation, unspecified (principal); E11.40 Type 2 diabetes mellitus with diabetic neuropathy, unspecified; E78.2 Mixed hyperlipidemia; E03.8 Other specified hypothyroidism

== ENCOUNTER → 2024-08-19 | Outpatient (REF) | payer MEDICARE, MEDICAID ==
[~2024-08-19] MED LIST changes: -FLOM0.4C39 PO; +GLIP-318 PO; -GLIP5TAB20 PO; +TAMS-18 PO
[2024-08-19 10:55] LABS: HEMATOCRIT 43.6 % (42.0-52.0); HEMOGLOBIN 13.9 g/dl (13.5-17.5); MEAN CORPUSCULAR HGB CONC 31.9 g/dl (32.0-36.5); MEAN CORPUSCULAR VOLUME 87.9 fl (80.0-96.0); PLATELET COUNT, AUTOMATED 171 10^3/uL (150-450); RED BLOOD COUNT 4.96 10^6/uL (4.30-6.10); WHITE BLOOD COUNT 6.3 10^3/uL (4.0-10.0)
[2024-08-19 11:06] LABS: ALBUMIN 3.9 G/DL (3.2-5.2); BILIRUBIN,TOTAL 0.8 MG/DL (0.3-1.2); CALCIUM LEVEL 9.4 MG/DL (8.3-10.6); CHOLESTEROL RISK RATIO 3.47 (<5); CREATININE FOR GFR 1.16 MG/DL (0.70-1.30); FREE T4 1.18 NG/DL (0.89-1.76); GLOMERULAR FILTRATION RATE 65.7 (>42); HDL CHOLESTEROL 37.1 MG/DL (>40); LDL CHOLESTEROL 72.5 MG/DL (<100); MAGNESIUM LEVEL 2.1 MG/DL (1.8-2.4); NON-HDL-C 91.9 MG/DL; POTASSIUM SERUM 4.3 MMOL/L (3.5-5.1); THYROID STIMULATING HORMONE 6.596 uIU/ML (0.55-4.78); TOTAL PROTEIN 7.3 G/DL (5.7-8.2)
== END ==
LOC: M SFHCPLAZ 08:20
PROVIDERS: ATTEND Nurse Practitioner Adult Health
DX: I48.20 Chronic atrial fibrillation, unspecified (principal); E11.40 Type 2 diabetes mellitus with diabetic neuropathy, unspecified; E78.2 Mixed hyperlipidemia

== ENCOUNTER → 2025-02-24 | Outpatient (CLI) | payer MEDICARE, MEDICAID ==
[~2025-02-24] MED LIST changes: +LISI40TA10 PO; -LISI40TA4 PO
[2025-02-24 11:16] LABS: PLATELET COUNT, AUTOMATED 163 10^3/uL (150-450)
[2025-02-24 11:28] LABS: ESTIMATED AVERAGE GLUCOSE 189.0 MG/DL (60-110)
[2025-02-24 11:47] LABS: ALT/SGPT 24.0 U/L (7.0-40); AST/SGOT 22.0 U/L (<34); CALCIUM LEVEL 9.5 MG/DL (8.3-10.6); CARBON DIOXIDE LEVEL 27.0 MMOL/L (20-31); CHLORIDE LEVEL 105.0 MMOL/L (98-107); CHOLESTEROL LEVEL 124.0 MG/DL (<200); CHOLESTEROL RISK RATIO 3.78 (<5); CREATININE FOR GFR 1.4 MG/DL (0.70-1.30); GLOMERULAR FILTRATION RATE 52.1 (>42); LDL CHOLESTEROL 63.8 MG/DL (<100); NON-HDL-C 91.2 MG/DL; POTASSIUM SERUM 4.5 MMOL/L (3.5-5.1); SODIUM LEVEL 143.0 MMOL/L (136-145); TRIGLYCERIDES LEVEL 137.0 MG/DL (<150)
[2025-02-24 11:49] LABS: FREE T4 1.16 NG/DL (0.89-1.76)
== END ==
LOC: M PLALAB 09:22
PROVIDERS: ATTEND Nurse Practitioner Adult Health
DX: I48.20 Chronic atrial fibrillation, unspecified (principal); E11.40 Type 2 diabetes mellitus with diabetic neuropathy, unspecified; E78.2 Mixed hyperlipidemia